=== PATIENT | female | born 1970 | race Caucasian/White ===

== ENCOUNTER 2018-05-04 11:21 | Emergency (ER) | payer MEDICAID, SELFPAY ==
[2018-05-04 11:22] VITALS: BP 125/88; PULSE 79; RESP 14; TEMP 36.4; O2SAT 96; BMI 24.9
[2018-05-04 11:32] VITALS: BP 113/78; PULSE 76; RESP 20; O2SAT 94
--- NOTE | 2018-05-04 11:44 | EKG12_ITS ---
Test Reason : CP Blood Pressure : / mmHG Vent. Rate : 077 BPM Atrial Rate : 077 BPM P-R Int : 148 ms QRS Dur : 072 ms QT Int : 384 ms P-R-T Axes : 046 004 035 degrees QTc Int : 434 ms Normal sinus rhythm Septal infarct , age undetermined Abnormal ECG Confirmed by PAULINE COLEY, JESSI ([id number]), senior technical editor BARBARA NGUYEN ([id number] on 05/11/2018 3:23:09 PM Referred By: JOHN Confirmed By:JESSI CARPENTER MD
--- NOTE | 2018-05-04 11:44 | RAD_ITS ---
STUDY: X-RAY CHEST REASON FOR EXAM: Female, 47 years old. Chest pain x1 month TECHNIQUE: PA and lateral views of the chest. COMPARISON: 11/07/2013 FINDINGS: The lungs are clear and expanded. There is no demonstrated pleural abnormality. Normal size heart. Normal mediastinum and reina. Normal visualized pulmonary arteries. Normal visualized aortic arch and descending thoracic aorta. Normal visualized thoracic spine. Normal visualized ribs, clavicles, and shoulders. There is no demonstrated abnormality of the visualized soft tissue structures of the upper abdomen. RAD/Chest PA and Lateral IMPRESSION: Normal x-ray examination of the chest. Electronically Signed: Eric Fall DO at 12:28 EDT Tel , Service support ,
[2018-05-04] MEDS: Aspirin 81 MG TAB.CHEW 324 MG PO (11:50)
[2018-05-04 11:51] LABS: Absolute Neutrophil Count 4.4 X10^3/uL (2.0-7.7); Basophil# 0.01 X10^3/uL; Basophil% 0.1 % (0-1); Hematocrit 44.9 % (37-47); Hemoglobin 14.7 g/dl (12.0-15.0); Lymphocyte % 36.1 % (19-41); Mean Corp Hgb Conc 32.7 g/gl (32-36); Mean Corpuscular Hgb 28.2 pg (27.0-32.0); Mean Corpuscular Volume 86.2 fL (81-99); Mean Platelet Vol. 10.9 fl (6.2-12.0); Monocyte# 0.39 X10^3/uL; Monocyte% 5.2 % (0-10); Neutrophil # 4.37 X10^3/uL (2.7-7.7); Neutrophil % 58.5 % (47-70); POSITIVE COUNT NO; POSITIVE DIFFERENTIAL NO; POSITIVE MORPHOLOGY NO; Platelet Count 346 K/mm3 (150-450); RBC Distribution Width CV 14.8 % (11.6-14.6); RBC Distribution Width SD 46.9 fl (35.1-43.9); Red Blood Count 5.21 M/mm3 (4.2-5.4); White Blood Count 7.5 K/mm3 (4.4-11.0)
[2018-05-04 12:04] LABS: Anion Gap 9 (5-15); BUN 12 mg/dL (7-18); Calcium,Total 9.4 mg/dL (8.5-10.1); Chloride 97 mmol/L (98-107); EST Glomerular Filtration Rate 51 mL/min (>60); Est Glom Filt Rate - Afr Amer 62 mL/min (>60); Estimated Creatinine Clearance 53.67 ml/min; Glucose 80 mg/dL (74-106); Potassium 3.8 mmol/L (3.5-5.1); Sodium Level 135 mmol/L (136-145)
[2018-05-04 13:20] LABS: D-Dimer Quantitative (DVT/PE) 1.75 FEU/ug/m (0.27-0.49)
--- NOTE | 2018-05-04 13:20 | CT_ITS ---
STUDY: CTA CHEST REASON FOR EXAM: Female, 47 years old. One-month history of a elevated d-dimer and chest pain. History of bronchitis. RADIATION DOSAGE (If Supplied By Facility): CTDIvol = ( 7.37 ) mGy, DLP = ( 275.26 ) mGycm TECHNIQUE: The examination was performed with the intravenous administration of 75 ml of Isovue 370 contrast material. Post-processing of the angiographic images was performed, with multiplanar reformation and 3D reconstruction. Individualized dose optimization techniques were used for this CT. COMPARISON: Comparison is made with prior study dated November 07, 2013. FINDINGS: Small bilateral axillary lymph nodes slightly more prominent on the left side. Normal enhancement of the main pulmonary artery and right and left pulmonary arteries. Normal enhancement of the bilateral peripheral pulmonary arteries. There is no demonstrated pulmonary embolism. Normal thoracic aorta and visualized great vessels. There is no demonstrated aortic dissection. Normal heart and pericardium. There are visualized mediastinal lymph nodes, which are within normal size limits, and with normal morphology. Normal hilar regions. Normal visualized trachea and bronchi. The lungs are well expanded. There is evidence of emphysematous changes. This is worse in the upper lobes. Normal pleura. Normal chest wall structures. There are degenerative changes of thoracic spine. Small hiatal hernia. CT/CTA Chest W/WO Contrast IMPRESSION: No acute abnormality is seen. Emphysematous changes. Electronically Signed: Ramsey Box MD at 15:10 EDT Tel [phone], Service support ,
[2018-05-04 14:41] VITALS: BP 125/86; PULSE 63; RESP 18; O2SAT 97
--- NOTE | 2018-05-04 15:23 | ED.DCSUM_ITS ---
- ER Visit Summary Date of Service: 05/04/18 Chief Complaint: Chest pain History of Present Illness: The patient is a 47 F who presents with chest pain. She states that this is been present for a month. She states I think it is my fibro. She complains of left upper chest pain through to her shoulder and down her arm. She has recently been treated for bronchitis with 3 different antibiotics in the last month. She complains of congestion rhinorrhea and cough although notes that this is improving. No fever nausea vomiting diarrhea. Physical Examination: Afebrile vitals are stable and within normal limits Moist mucous membranes Heart regular rate and rhythm Lungs are clear without rales rhonchi or wheezes Patient does have some left upper chest tenderness No rash Alert Extremities nontender without edema Test Results: EKG shows normal sinus rhythm at a rate of 77 with no acute ischemic changes. Chest x-ray is normal. Labs are unremarkable with a negative troponin. D-dimer is 1.75. CTA of the chest shows no evidence of pulmonary embolism or aortic dissection. Emergency Department Course and Treatment: Patient's workup is unremarkable as above. EMILEE risk score is 0 and heart score is 2 which places her in a low risk category. She has been having symptoms for 1 month. I do not believe this is due to cardiac ischemia. I do believe she is safe to follow-up with her primary care physician in the office. She understands to return for new or worsening symptoms and was discharged home. Treatment Plan: [] Disposition: Discharge Impression: Chest pain This note was generated with Pic[employer] dictation software. It may contain incorrect words, spelling, and punctuation that were not noted in review of the chart prior to signing ED Disposition - Plan for ED Patient: Chief Complaint: Chest Pain Referrals: Song Tee III, MD [Primary Care Provider] -
--- NOTE | 2018-05-04 15:25 | ED.DEP ---
ED Disposition - Plan for ED Patient: Chief Complaint: Chest Pain Instructions: ED Chest Pain NonCardiac Referrals: Song Tee III, MD [Primary Care Provider] -
[2018-05-04 15:35] VITALS: BP 127/84; PULSE 64; RESP 17; O2SAT 99
== END 2018-05-04 15:36 | disposition home or self-care (01) ==
LOC: ED 11:52
PROVIDERS: Emergency Provider Emergency Medicine; Family Provider Family Medicine; PCP Family Medicine
DX: R07.9 Chest pain, unspecified (principal); R05 Cough; J34.89 Other specified disorders of nose and nasal sinuses; I10 Essential (primary) hypertension; K21.9 Gastro-esophageal reflux disease without esophagitis; Z72.0 Tobacco use
CPT/HCPCS: 71046; 71275; 80048; 84484; 85025; 85379; 93005; 99285; Q9967; A4216

== ENCOUNTER 2022-07-03 13:04 | Emergency (ER) | payer MEDICAID, SELFPAY ==
[2022-07-03 13:05] VITALS: BP 158/77; PULSE 98; RESP 16; TEMP 36.6; O2SAT 100; BMI 23.3
[2022-07-03] MEDS: Lidocaine 1% (20 ml mdv) 20 ML Vial 10 ML INFILT (16:13)
[2022-07-03 16:18] VITALS: BP 123/82; PULSE 76; PULSE 80; RESP 15; O2SAT 98
--- NOTE | 2022-07-03 16:44 | EDS_ITS ---
HPI <TERRELL Clements - Last Filed: 07/03/22 21:59> History of Present Illness Chief Complaint: Abscess Narrative Narrative: Patient presents today with an abscess on her right inner thigh that started Friday. She states she had no injury to the area and that it just randomly appeared. She states a pus-like discharge was coming out of it Friday and that on Friday the discharge was clear. She states she has only had one abscess before in a different location and it was when she was a teenager. Patient denies fever, chills, abdominal pain, nausea, vomiting, diarrhea. PFSH <TERRELL Clements - Last Filed: 07/03/22 21:59> PFSH Medical History Hypertension Smoker Home Medications Bisoprol/Hydrochlorothiazide [Ziac 10/6.25 Mg (Beta Shira)] 1 tab PO DAILY 11/07/13 [History Last Taken 05/04/18] Venlafaxine Xr [Effexor Xr] 75 mg PO DAILY 11/07/13 [History Last Taken 05/04/18] ketorolac 10 mg tablet 10 mg PO Q6H ##20 11/08/13 [Rx Last Taken Unknown] gabapentin 600 mg tablet 900 mg PO TIDCM 05/04/18 [History Last Taken 05/04/18] doxycycline hyclate 100 mg capsule 100 mg PO DAILY cellulitis 5 days #5 caps 07/03/22 [Rx Last Taken Unknown] omeprazole 20 mg capsule,delayed release 20 mg PO DAILY 07/03/22 [History Last Taken Unknown] Allergy/AdvReac Type Severity Reaction Status Date / Time Sulfa (Sulfonamide Allergy Shortness Verified 07/03/22 13:05 Antibiotics) of breath amoxicillin [Amoxicillin] AdvReac Other Verified 07/03/22 13:05 Social History Smoking Status: Current every day smoker tobacco type: cigarettes ROS <TERRELL Clements - Last Filed: 07/03/22 21:59> ROS ED Constitutional Constitutional ED: Denies chills, fever(s) or sweats Eyes Eyes: Denies blurry vision or change in vision ENT ENT ED: Denies rhinorrhea or sore throat Cardiovascular Cardiovascular: Denies chest pain or palpitations Respiratory/Chest Respiratory/Chest: Denies cough, dyspnea, shortness of breath at rest or shortness of breath with exertion Gastrointestinal Gastrointestinal: Denies abdominal pain, diarrhea, nausea or vomiting Genitourinary Genitourinary ED: Denies dysuria, hematuria or urinary frequency Musculoskeletal Musculoskeletal: Denies myalgias Integumentary Reports abscess; Denies Abrasions or rash Neurologic Neurologic: Denies headache(s), paresthesias or weakness Psychiatric Psychiatric: Denies anxiety EXAM <TERRELL Clements - Last Filed: 07/03/22 21:59> Physical Exam Const Vital Signs: 07/03/22 13:05 07/03/22 16:18 07/03/22 16:18 Temperature 97.8 F Temperature Source Temporal Pulse Rate 98 80 76 Respiratory Rate 16 15 15 Blood Pressure 158/77 H 123/82 H 123/82 H Blood Pressure Mean 104 95 Pulse Ox 100 98 98 Oxygen Delivery Method Room Air Room Air Positive well nourished and well developed General Appearance ED: well developed HEENT Reports moist mucous membranes Negative for trauma or tenderness Eyes PERRL and EOMs intact bilaterally Neck supple Chest Wall inspection of chest normal Resp normal respiratory effort and clear to auscultation bilaterally Cardio regular rate, regular rhythm and no murmurs GI non-tender, non-distended and no masses Palpation: soft Back/Spine Cervical Spine: Negative for cervical spine tenderness Thoracic Spine / Upper Back: Negative for thoracic spinal tenderness Lumbar Spine / Lower Back: Negative for lumbar spinal tenderness Extremity Extremity Narrative: Patient has a small fluctuant and erythemic abscess on her right inner thigh near the groin. No streaking of redness. Neuro oriented x3, CN's II-XII intact bilaterally and no sensory deficits noted Sensorium / Orientation: alert Motor Exam: strength 5/5 throughout Psych mental status grossly normal Skin Skin Narrative: see extremity. Lesions: No lesion noted Rashes: No rashes noted <Dr. Constantino Duran MD - Last Filed: 07/03/22 22:05> Physical Exam Const Vital Signs: 07/03/22 13:05 07/03/22 16:18 07/03/22 16:18 Temperature 97.8 F Temperature Source Temporal Pulse Rate 98 80 76 Respiratory Rate 16 15 15 Blood Pressure 158/77 H 123/82 H 123/82 H Blood Pressure Mean 104 95 Pulse Ox 100 98 98 Oxygen Delivery Method Room Air Room Air MDM <TERRELL Clements - Last Filed: 07/03/22 21:59> [facility] MDM Narrative Medical decision making narrative: The abscess was drained and patient was sent home with antibiotics. She has been given return instructions such as increased redness, increased swelling, increased purulent discharge, and fever. I am comfortable with patient d ischarging home and patient is comfortable with plan. <Dr. Constantino Duran MD - Last Filed: 07/03/22 22:05> [facility] Treatment and Re-Evaluation Narrative: Renee- Patient was seen by me there is a right inner thigh abscess that is slightly draining, I did asked the PA to break all the loculations. This happened and I evaluated the wound, all the loculations are broken there is no further pus. We will place the patient on analgesics and antibiotics. Procedures <TERRELL Clements - Last Filed: 07/03/22 21:59> Other Procedures Procedure(s): Area was cleaned with Betadine and 6 cc of lidocaine was injected to the area. The abscess was opened with hemostats and drained. No packing was necessary. The area was then dressed with a dry sterile dressing. Discharge Plan Triage Chief Complaint: Abscess ED Midlevel Provider: Samaria Vega ED Provider: Constantino Duran Dx/Rx/DC Orders Clinical Impression: Abscess Instructions: Abscess Drainage Prescriptions: New doxycycline hyclate 100 mg capsule 100 mg PO DAILY 5 Days Qty: 5 0RF No Action Bisoprol/Hydrochlorothiazide [Ziac 10/6.25 Mg (Beta Shira)] 1 TAB tablet 1 tab PO DAILY Venlafaxine Xr [Effexor Xr] 75 MG capsule 75 mg PO DAILY ketorolac 10 MG tablet 10 mg PO Q6H Qty: 20 0RF gabapentin 600 tablet 900 mg PO TIDCM omeprazole 20 mg capsule,delayed release(DR/EC) 20 mg PO DAILY Label Comments: TAKE ONE CAPSULE BY MOUTH ONCE DAILY 30 MINUTES BEFORE BREAKFAST Primary Care Provider: Shawn Aguero Referrals: Shawn Aguero PA [Primary Care Provider] - 5-7 Days Activity Restrictions/Additional Instructions: Please return if you notice increased redness and swelling or if you develop a fever. Keep area clean, dry, and covered. Disposition Disposition: Home, Self Care Discharge Date/Time: 07/03/22 16:20
== END 2022-07-03 16:20 | disposition home or self-care (01) ==
PROVIDERS: Emergency Provider Emergency Medicine; PCP Physician Assistant; Visit Provider Emergency Medicine
DX: L02.415 Cutaneous abscess of right lower limb (principal); I10 Essential (primary) hypertension; F17.210 Nicotine dependence, cigarettes, uncomplicated
CPT/HCPCS: 10060; 99283

== ENCOUNTER 2022-07-09 13:27 | Observation (INO) | payer MEDICAID, SELFPAY ==
[2022-07-09 13:28] VITALS: BP 150/84; PULSE 80; RESP 14; TEMP 36.6; O2SAT 100; BMI 22.1
--- NOTE | 2022-07-09 14:25 | EX.ED.DYSGE1 ---
HPI <TERRELL Clements - Last Filed: 07/09/22 22:05> History of Present Illness Chief Complaint: Abscess Narrative Narrative: Patient presents today with a purulent and erythemic wound on her upper right inner thigh that started 06/29/22. Patient presented here on 07/03 for the same problem but less severe. At that point there was an abscess that was I&D and patient was placed on 5 days of doxycycline. Patient states that she did not take her Doxy as prescribed and only took 1 pill. She states she slept for almost 4 days straight and is mad that her daughter did not wake her up to take her antibiotic. Patient states that the wound now smells and hurts. She thinks she may have had a fever and chills a few days ago but is unsure. Patient denies recent fever, abdominal pain, nausea, and vomiting. PFSH <TERRELL Clements - Last Filed: 07/09/22 22:05> [facility] Medical History Hypertension Smoker Home Medications gabapentin 600 mg tablet 900 mg PO TIDCM 05/04/18 [History Last Taken 1 Week Ago ~07/02/22] omeprazole 20 mg capsule,delayed release 20 mg PO DAILY 07/03/22 [History Last Taken 1 Week Ago ~07/02/22] bisoprolol 10 mg-hydrochlorothiazide 6.25 mg tablet 1 tab PO DAILY HEART 07/09/22 [History Last Taken 1 Week Ago ~07/02/22] cetirizine 10 mg tablet 10 mg PO DAILY ALLERGIES 07/09/22 [History Last Taken 1 Week Ago ~07/02/22] tizanidine 4 mg tablet 4 mg PO DAILY MUSCLE RELAXANT 07/09/22 [History Last Taken 1 Week Ago ~07/02/22] venlafaxine 150 mg capsule,extended release 24 hr 150 mg PO DAILY DEPRESSION 07/09/22 [History Last Taken 1 Week Ago ~07/02/22] Allergy/AdvReac Type Severity Reaction Status Date / Time Sulfa (Sulfonamide Allergy Shortness Verified 07/09/22 13:28 Antibiotics) of breath amoxicillin [Amoxicillin] AdvReac Other Verified 07/09/22 13:28 Family History (Updated 07/09/22 @ 19:[address] Jossy Hebert MD) Mother Diabetes Father Mesothelioma Surgical History (Updated 07/09/22 @ 20:[address] Jossy Hebert MD) H/O foot surgery History of carpal tunnel surgery History of elbow surgery Social History (Updated 07/09/22 @ 19:[address] Jossy Hebert MD) household members: family Smoking Status: Light Smoker (<10/day) alcohol intake: former substance use type: does not use ROS <TERRELL Clements - Last Filed: 07/09/22 22:05> ROS ED Constitutional Constitutional ED: Denies chills, fever(s) or sweats Eyes Eyes: Denies blurry vision, change in vision or diplopia ENT ENT ED: Denies nasal congestion, rhinorrhea or sore throat Cardiovascular Cardiovascular: Denies chest pain, palpitations or racing heartbeat Respiratory/Chest Respiratory/Chest: Denies cough, dyspnea or dyspnea on exertion Gastrointestinal Gastrointestinal: Denies abdominal pain, diarrhea, nausea or vomiting Genitourinary Genitourinary ED: Denies dysuria, hematuria or urinary frequency Musculoskeletal Musculoskeletal: Denies back pain, myalgias or neck pain Integumentary Reports abscess; Denies Abrasions or rash Neurologic Neurologic: Denies headache(s), paresthesias or weakness Psychiatric Psychiatric: Denies anxiety or depression Hematologic/Lymphatic Hematologic/Lymphatic: Denies easy bleeding EXAM <TERRELL Clements - Last Filed: 07/09/22 22:05> Physical Exam Const Vital Signs: 07/09/22 13:28 07/09/22 17:08 Temperature 97.8 F Temperature Source Temporal Pulse Rate 80 63 Respiratory Rate 14 16 Blood Pressure 150/84 H 155/55 H Blood Pressure Mean 106 88 Pulse Ox 100 100 Oxygen Delivery Method Room Air Room Air Positive well nourished and well developed General Appearance ED: well developed and NAD HEENT Reports moist mucous membranes Negative for trauma Eyes PERRL and EOMs intact bilaterally Neck no lymphadenopathy and supple Chest Wall inspection of chest normal Resp normal respiratory effort and clear to auscultation bilaterally Cardio regular rate, regular rhythm and no murmurs GI non-tender, non-distended and no masses Palpation: soft Back/Spine Cervical Spine: Negative for cervical spine tenderness Thoracic Spine / Upper Back: Negative for thoracic spinal tenderness Lumbar Spine / Lower Back: Negative for lumbar spinal tenderness Extremity Extremity Narrative: Patient has a erythemic and purulent wound to her right upper inner thigh. There is hardness to the wound but no fluctuance is appreciated. There is some streaking of redness up her R thigh. Neuro oriented x3, CN's II-XII intact bilaterally and no sensory deficits noted Sensorium / Orientation: alert Motor Exam: strength 5/5 throughout Psych mental status grossly normal Skin skin turgor normal Skin Narrative: See above. Rashes: No rashes noted <Dr. Vicki Shah DO - Last Filed: 07/09/22 23:54> Physical Exam Const Vital Signs: 07/09/22 13:28 07/09/22 17:08 Temperature 97.8 F Temperature Source Temporal Pulse Rate 80 63 Respiratory Rate 14 16 Blood Pressure 150/84 H 155/55 H Blood Pressure Mean 106 88 Pulse Ox 100 100 Oxygen Delivery Method Room Air Room Air Extremity Extremity Narrative: Patient has a erythemic and purulent wound to her right upper inner thigh. There is hardness to the wound but no fluctuance is appreciated. There is some streaking of redness up her R thigh. 2 cm in diameter with surrounding erythema/induration of the skin MDM <TERRELL Clements - Last Filed: 07/09/22 22:05> MDM MDM Narrative Medical decision making narrative: Vancomycin has been administered. Wound culture has been obtained. There is no abscess to drain but patient has cellulitis. Patient has been given potassium replacement. Patient has been discussed with the hospitalist and I think she will benefit from admission for IV antibiotics. Patient is comfortable with plan. Patient will be admitted to the hospital for observation and further treatment. Lab Data Attestation: I reviewed the patient's lab results. Lab results narrative: No elevated white blood cell count. Hypokalemia. Decreased anion gap. Slightly elevated BUN and creatinine. Labs: Laboratory Results - last 24 hr 07/09/22 07/09/22 07/09/22 15:05 15:05 15:05 WBC 7.5 RBC 4.58 Hgb 11.8 L Hct 37.4 MCV 81.7 MCH 25.8 L MCHC 31.6 L RDW Std Deviation 42.5 RDW Coeff of Laurie 14.6 Plt Count 257 MPV 10.7 Immature Gran % (Auto) 0.900 Neut % (Auto) 67.4 Lymph % (Auto) 25.0 Norton % (Auto) 6.4 Eos % (Auto) 0.0 Baso % (Auto) 0.3 Absolute Neuts (auto) 5.1 Absolute Lymphs (auto) 1.88 Nucleated RBC % 0 Sodium 134 L Potassium 2.8 L Chloride 103 Carbon Dioxide 28.0 Anion Gap 3 L BUN 20 H Creatinine 1.06 H Estim Creat Clear Calc 58.12 Est GFR (MDRD) Af Amer 70 Est GFR (MDRD) Non-Af 58 L BUN/Creatinine Ratio 18.9 Glucose 87 Hemoglobin A1c Calcium 9.1 Magnesium 2.4 07/09/22 15:05 WBC RBC Hgb Hct MCV MCH MCHC RDW Std Deviation RDW Coeff of Laurie Plt Count MPV Immature Gran % (Auto) Neut % (Auto) Lymph % (Auto) Norton % (Auto) Eos % (Auto) Baso % (Auto) Absolute Neuts (auto) Absolute Lymphs (auto) Nucleated RBC % Sodium Potassium Chloride Carbon Dioxide Anion Gap BUN Creatinine Estim Creat Clear Calc Est GFR (MDRD) Af Amer Est GFR (MDRD) Non-Af BUN/Creatinine Ratio Glucose Hemoglobin A1c 5.8 H Calcium Magnesium Radiography Diagnostic Testing: Clinical Impression(s) from Imaging Studies Abdomen/Pelvis CT 07/09/22 15:35 IMPRESSION: Cellulitis of the upper right thigh but no abscess. Electronically Signed: Blayne Grace MD at 16:47 EST , I agree with radiologist impressions. This CT scan has also been reviewed by attending ED physician. <Dr. Vicki Shah, DO - Last Filed: 07/09/22 23:54> [facility] Lab Data Labs: Laboratory Results - last 24 hr 07/09/22 07/09/22 07/09/22 15:05 15:05 15:05 WBC 7.5 RBC 4.58 Hgb 11.8 L Hct 37.4 MCV 81.7 MCH 25.8 L MCHC 31.6 L RDW Std Deviation 42.5 RDW Coeff of Laurie 14.6 Plt Count 257 MPV 10.7 Immature Gran % (Auto) 0.900 Neut % (Auto) 67.4 Lymph % (Auto) 25.0 Norton % (Auto) 6.4 Eos % (Auto) 0.0 Baso % (Auto) 0.3 Absolute Neuts (auto) 5.1 Absolute Lymphs (auto) 1.88 Nucleated RBC % 0 Sodium 134 L Potassium 2.8 L Chloride 103 Carbon Dioxide 28.0 Anion Gap 3 L BUN 20 H Creatinine 1.06 H Estim Creat Clear Calc 58.12 Est GFR (MDRD) Af Amer 70 Est GFR (MDRD) Non-Af 58 L BUN/Creatinine Ratio 18.9 Glucose 87 Hemoglobin A1c Calcium 9.1 Magnesium 2.4 07/09/22 15:05 WBC RBC Hgb Hct MCV MCH MCHC RDW Std Deviation RDW Coeff of Laurie Plt Count MPV Immature Gran % (Auto) Neut % (Auto) Lymph % (Auto) Norton % (Auto) Eos % (Auto) Baso % (Auto) Absolute Neuts (auto) Absolute Lymphs (auto) Nucleated RBC % Sodium Potassium Chloride Carbon Dioxide Anion Gap BUN Creatinine Estim Creat Clear Calc Est GFR (MDRD) Af Amer Est GFR (MDRD) Non-Af BUN/Creatinine Ratio Glucose Hemoglobin A1c 5.8 H Calcium Magnesium Radiography Diagnostic Testing: Clinical Impression(s) from Imaging Studies Abdomen/Pelvis CT 07/09/22 15:35 IMPRESSION: Cellulitis of the upper right thigh but no abscess. Electronically Signed: Blayne Grace MD at 16:47 EST , Treatment and Re-Evaluation Narrative: I have personally performed a face to face assessment of the patient and have reviewed the ANNY Note. I performed a substantive portion of the visit including all aspects of the following. My mosley findings include: History is patient is evaluated for worsening wound/abscess to her right upper thigh. Patient was seen and evaluated in our ER1 week ago for an abscess in the same area. She was placed on doxycycline and I&D was performed. Patient admits that she only took 1 dose of the doxycycline and for the past 3 days has been sleeping and not eating. She previously had fever and chills. She states her daughter was supposed to wake her up to remind her to take her medications and her daughter is 19 and has 3 children at home so she has been overwhelmed. Patient overall is well-appearing. Her work-up is largely normal. She does have a mild elevation of her BUN and creatinine I suspect she is a little bit dehydrated. No leukocytosis. She is hypokalemic. Magnesium is ordered which is normal. She started on potassium replacement in the ER. The wound itself is draining slightly and ulcerated. I do not think there is further abscess amenable to I&D. There is surrounding cellulitic changes. No crepitus appreciated. CT the abdomen pelvis obtained to evaluate for any deeper abscess or free air. This is positive only for cellulitis of the upper right thigh. Given patient's allergies and worsening wound especially is close it is to the perineum I think she would benefit from IV antibiotics. She started on IV vancomycin. Patient agreeable to splenic care. She remains hemodynamically stable in the ER. Discharge Plan Dx/Rx/DC Orders Clinical Impression: Cellulitis, Acute hypokalemia Disposition Disposition: Acute Care Hospital [facility] Discharge Date/Time: 07/09/22 19:00
[2022-07-09 15:13] LABS: Absolute Lymphocyte Count 1.88 X10^3/uL (0.83-4.51); Absolute Neutrophil Count 5.1 X10^3/uL (2.0-7.7); Basophil# 0.02 X10^3/uL; Basophil% 0.3 % (0-1); Hematocrit 37.4 % (37-47); Hemoglobin 11.8 g/dL (12.0-15.0); Lymphocyte # 1.88 X10^3/ul (0.83-4.51); Mean Corp Hgb Conc 31.6 g/dL (32-36); Mean Corpuscular Hgb 25.8 pg (27.0-32.0); Mean Corpuscular Volume 81.7 fL (81-99); Mean Platelet Vol. 10.7 fl (6.2-12.0); Monocyte# 0.48 X10^3/uL; Monocyte% 6.4 % (0-10); NRBC Flagged by Analyzer 0 % (0-5); Neutrophil # 5.07 X10^3/uL (2.7-7.7); Neutrophil % 67.4 % (47-70); Platelet Count 257 K/mm3 (150-450); RBC Distribution Width CV 14.6 % (11.6-14.6); RBC Distribution Width SD 42.5 fl (35.1-43.9); Red Blood Count 4.58 M/mm3 (4.2-5.4); White Blood Count 7.5 K/mm3 (4.4-11.0)
[2022-07-09 15:27] LABS: Anion Gap 3 (5-15); BUN 20 mg/dL (7-18); BUN/Creat Ratio 18.9 RATIO (10-20); Calcium,Total 9.1 mg/dL (8.5-10.1); Chloride 103 mmol/L (98-107); Creatinine, Serum 1.06 mg/dL (0.55-1.02); EST Glomerular Filtration Rate 58 mL/min (>60); Est Glom Filt Rate - Afr Amer 70 mL/min (>60); Estimated Creatinine Clearance 58.12 ml/min; Glucose 87 mg/dL (74-106); Potassium 2.8 mmol/L (3.5-5.1); Sodium Level 134 mmol/L (136-145)
[2022-07-09] MEDS: Lidocaine 1% (20 ml mdv) 20 ML Vial 10 ML INFILT (15:31)
--- NOTE | 2022-07-09 15:35 | CT_ITS ---
STUDY: CT ABDOMEN AND PELVIS WITH CONTRAST REASON FOR EXAM: Female, 51 years old. abscess R inguinal region RADIATION DOSAGE (If Supplied By Facility): CTDIvol = ( 10.74 ) mGy, DLP = ( 519.94 ) mGycm TECHNIQUE: Transaxial images were obtained from the dome of the diaphragm to the symphysis pubis without oral contrast. IV 100mL Isovue-300 was administered. Sagittal and coronal images were reconstructed. Individualized dose optimization techniques were used for this CT. COMPARISON: None. FINDINGS: The visualized lung bases are unremarkable. The visualized portions of the heart are within normal limits. Normal liver. Normal gallbladder and extrahepatic biliary system. Normal spleen. Normal pancreas. Normal bilateral adrenal glands. Normal right kidney. Normal left kidney. Normal visualized stomach. Normal small intestine. Normal colon. The appendix is visualized and appears normal. There is diffuse atherosclerotic calcification of the abdominal aorta, without a demonstrated aneurysm. Normal inferior vena cava. Normal retroperitoneum. Normal urinary bladder. Normal abdominal wall. Mild levoscoliosis of the lumbar spine with degenerative disc disease. Skin thickening and edema of the subcutaneous fat of the medial aspect of the proximal thigh consistent with cellulitis but no loculated fluid collection to suggest abscess. CT/Abdomen/Pelvis W IV Cont ONLY IMPRESSION: Cellulitis of the upper right thigh but no abscess. Electronically Signed: Blayne Grace MD at 16:47 EST ,
[2022-07-09 16:08] LABS: Magnesium 2.4 mg/dL (1.6-2.6)
[2022-07-09] MEDS: Potassium Chloride Oral Soln 20 MEQ/15 ML UDC 40 MEQ PO (17:06)
[2022-07-09] MEDS: Potassium Chloride 10mEq/100mL 10 MEQ/100 ML IV.SOLN. 100 MEQ IV BOLUS ×2 (17:06→19:51)
[2022-07-09 17:08] VITALS: BP 155/55; PULSE 63; RESP 16; O2SAT 100
[2022-07-09] MEDS: 0.9% Normal Saline 1,000 ML 150 ML IV (17:48)
--- NOTE | 2022-07-09 17:52 | PCM.HP.STD ---
HPI - General General Date of Admission: 07/09/22 Date of Service: 07/09/22 Chief Complaint: Right thigh wound - 1 week HPI Narrative VERNON LUGO, is a 51 F who presents with the above. Patient has past medical history of hypertension, fibromyalgia, who was recently seen in the emergency room on 07/03/22 with an abscess of the right upper medial thigh. Patient had an I&D done at that time. She was discharged on doxycycline. Patient stated that when she go home, she took only 1 dose of the doxycycline. She stated that she slept for 3 days straight without her daughter waking her up. She denied taking anything. She cannot explain why she slept for 3 days without waking up. Patient came back because her wound hurts and is smelling. She denies any fever or chills. Her vitals in the ED showed blood pressure 150/84, heart rate 80, respiratory 14, temperature 97.8 F, oxygen sat 100% on room air. L BC count 7.5, hemoglobin 11.8, platelet count 257, sodium was 134 potassium 2.8, chloride 103, bicarbonate 28, BUN 20, creatinine 1.06. Magnesium was 2.4. CT of the abdomen/pelvis showed cellulitis of the upper right thigh but no abscess. [facility] Medical History Hypertension Smoker Home Medications gabapentin 600 mg tablet 900 mg PO TIDCM 05/04/18 [History Last Taken 1 Week Ago ~07/02/22] omeprazole 20 mg capsule,delayed release 20 mg PO DAILY 07/03/22 [History Last Taken 1 Week Ago ~07/02/22] bisoprolol 10 mg-hydrochlorothiazide 6.25 mg tablet 1 tab PO DAILY HEART 07/09/22 [History Last Taken 1 Week Ago ~07/02/22] cetirizine 10 mg tablet 10 mg PO DAILY ALLERGIES 07/09/22 [History Last Taken 1 Week Ago ~07/02/22] tizanidine 4 mg tablet 4 mg PO DAILY MUSCLE RELAXANT 07/09/22 [History Last Taken 1 Week Ago ~07/02/22] venlafaxine 150 mg capsule,extended release 24 hr 150 mg PO DAILY DEPRESSION 07/09/22 [History Last Taken 1 Week Ago ~07/02/22] Allergy/AdvReac Type Severity Reaction Status Date / Time Sulfa (Sulfonamide Allergy Shortness Verified 07/09/22 13:28 Antibiotics) of breath amoxicillin [Amoxicillin] AdvReac Other Verified 07/09/22 13:28 Family History (Updated 07/09/22 @ 19:[address] Jossy Hebert MD) Mother Diabetes Father Mesothelioma Surgical History (Updated 07/09/22 @ 20:[address] Jossy Hebert MD) H/O foot surgery History of carpal tunnel surgery History of elbow surgery Social History (Updated 07/09/22 @ 19:[address] Jossy Hebert MD) household members: family Smoking Status: Light Smoker (<10/day) alcohol intake: former substance use type: does not use ROS ROS Narrative Constitutional: Reports: Malaise, Weakness, Fatigue. Denies: Anorexia, Chills, Fever, Night Sweats, Weight Change Eyes: Denies: Blurred vision, Cataracts, Conjunctivae Inflammation, Pain, Redness, Vision Change HEENT: Denies: Difficulty Hearing, Difficulty Swallowing, Head Aches, Hearing Changes, Sinus Congestion, Sinus Drainage Cardiovascular: Denies: Chest Pain, Orthopnea, Palpitations Respiratory: Denies: Cough, Shortness of breath at rest, Sputum production Gastrointestinal: Denies: Abdominal Pain, Nausea, Vomiting Genitourinary: Denies: Dysuria Musculoskeletal: See HPI Skin: Denies: Rash, Wounds Neurological: Denies: Numbness, Tingling, Focal weakness Vital Signs Vital Signs Vital Signs: 07/09/22 13:28 07/09/22 17:08 Temperature 97.8 F Temperature Source Temporal Pulse Rate 80 63 Respiratory Rate 14 16 Blood Pressure 150/84 H 155/55 H Blood Pressure Mean 106 88 Pulse Ox 100 100 Oxygen Delivery Method Room Air Room Air Weight Weight: 62.142 kg Body Mass Index (BMI) 22.1 Physical Exam Narrative Physical exam: General: Alert, Oriented x3, Cooperative, HEENT: Atraumatic Oral: Moist Mucosa Neck: Supple Lungs: Clear to auscultation Cardiovascular: HS I+II, regular, no murmurs Abdomen: Bowel Sounds Present, Soft, Non Tender Extremities: No edema Skin: Right upper thigh erythema with differential warmth, ulcer on the right medial aspect of the upper thigh, measuring about 5 cm x 5 cm with evidence of slough, serosanguineous discharge Neurological: Grossly intact Psych/Mental Status: Appropriate Results Lab / Micro Data Result Diagrams: 07/09/22 15:05 07/09/22 15:05 Labs: Laboratory Results - last 24 hr 07/09/22 15:05: WBC 7.5, RBC 4.58, Hgb 11.8 L, Hct 37.4, MCV 81.7, MCH 25.8 L, MCHC 31.6 L, RDW Std Deviation 42.5, RDW Coeff of Laurie 14.6, Plt Count 257, MPV 10.7, Immature Gran % (Auto) 0.900, Neut % (Auto) 67.4, Lymph % (Auto) 25.0, [place] % (Auto) 6.4, Eos % (Auto) 0.0, Baso % (Auto) 0.3, Absolute Neuts (auto) 5.1, Absolute Lymphs (auto) 1.88, Nucleated RBC % 0 07/09/22 15:05: Sodium 134 L, Potassium 2.8 L, Chloride 103, Carbon Dioxide 28.0, Anion Gap 3 L, BUN 20 H, Creatinine 1.06 H, Estim Creat Clear Calc 58.12, Est GFR (MDRD) Af Amer 70, Est GFR (MDRD) Non-Af 58 L, BUN/Creatinine Ratio 18.9, Glucose 87, Calcium 9.1 07/09/22 15:05: Magnesium 2.4 Radiology Impression Abdomen/Pelvis CT 07/09/22 15:35 IMPRESSION: Cellulitis of the upper right thigh but no abscess. Electronically Signed: Blayne Grace MD at 16:47 EST , Assessment & Plan Assessment/Plan (1) Abscess: (2) Cellulitis: PLAN: Plan 1. Acute cellulitis/right upper thigh infected wound Status post I&D on 07/03/22; patient did not take care prescribed doxycycline Necrotizing fasciitis ruled out with negative CT of the abdomen and pelvis Admit to [facility], continue IV fluids, IV vancomycin and Zosyn Follow-up on wound cultures taken in the ED Wound RN consult as well as ID consult 2. Severe hypokalemia, potassium 2.8, replaced, Recheck later and in a.m. 3. Hypertension, controlled, continue bisoprolol/hydrochlorothiazide 4. History of fibromyalgia/depression/allergies/GERD Home med list reviewed -continue 5. Nicotine dependence, advised to quit, continue replacement 6. DVT prophylaxis?low risk, early ambulation recommended Charges/Coding Visit Charges Inpatient E&M: 28381 Init Hosp L3
[2022-07-09 17:59] VITALS: BP 166/78; PULSE 71; RESP 16; TEMP 36.6; O2SAT 99
[2022-07-09 18:06] VITALS: BP 168/77; PULSE 71; RESP 16; TEMP 36.6; O2SAT 98
[2022-07-09] MEDS: Vancomycin IV 1,000 MG/200 ML BAG 200 MG IV (18:17)
[2022-07-09 19:15] VITALS: BP 153/78; PULSE 73; RESP 16; TEMP 36.5; O2SAT 100
[2022-07-09 19:19] VITALS: BMI 22.2
[2022-07-09 20:36] LABS: Hemoglobin A1c 5.8 % (3.8-5.6)
[2022-07-09 21:20] LABS: Anion Gap 3 (5-15); BUN 17 mg/dL (7-18); BUN/Creat Ratio 16.5 RATIO (10-20); Calcium,Total 8.8 mg/dL (8.5-10.1); Chloride 106 mmol/L (98-107); Creatinine, Serum 1.03 mg/dL (0.55-1.02); EST Glomerular Filtration Rate 60 mL/min (>60); Est Glom Filt Rate - Afr Amer 72 mL/min (>60); Estimated Creatinine Clearance 59.81 ml/min; Glucose 123 mg/dL (74-106); Potassium 3.5 mmol/L (3.5-5.1); Sodium Level 137 mmol/L (136-145)
[2022-07-09 22:48] VITALS: BP 153/78; PULSE 73; RESP 16; TEMP 36.5; O2SAT 100
[2022-07-10 01:30] VITALS: BP 121/69; PULSE 71; RESP 16; TEMP 36.4; O2SAT 97
[2022-07-10 03:54] VITALS: BP 121/69; PULSE 71; RESP 16; TEMP 36.4; O2SAT 97
[2022-07-10] MEDS: 0.9% Normal Saline 1,000 ML 150 ML IV (05:47)
[2022-07-10 06:32] LABS: Absolute Neutrophil Count 4.6 X10^3/uL (2.0-7.7); Basophil# 0.02 X10^3/uL; Basophil% 0.3 % (0-1); Hemoglobin 11.2 g/dL (12.0-15.0); Lymphocyte % 27.9 % (19-41); Mean Corpuscular Hgb 25.9 pg (27.0-32.0); Mean Platelet Vol. 11.1 fl (6.2-12.0); Monocyte# 0.51 X10^3/uL; Monocyte% 7.1 % (0-10); NRBC Flagged by Analyzer 0 % (0-5); Platelet Count 275 K/mm3 (150-450); RBC Distribution Width CV 14.6 % (11.6-14.6); Red Blood Count 4.32 M/mm3 (4.2-5.4); White Blood Count 7.2 K/mm3 (4.4-11.0)
--- NOTE | 2022-07-10 06:34 | PHA.PHARE_ITS ---
Consult Pharmacy has been consulted to manage selected antiobiotic: Vancomycin Type of Consult: New start Suspected Infection: Skin/Soft tissue Prior Doses of Antibiotics Received/Current Regimen: received 1000mg IV x1 in E.R. last night starting at 18:17 Weight used for dosin.4 kg Estimated Creatinine Clearance: 58ml/min Goal Trough: 15-20 mcg/mL Pharmacy Plan for Drug Dosing: Starting 12 hours after last night's dose, continue with vanc 500mg IV q12h per [facility] dosing protocol. Will check a trough before the 4th total dose tomorrow morning. Pharmacy Service will continue to monitor and adjust dosing as required. Follow-Up Labs: Trough Vancomycin Labs to be done on [date and time ordered]: 07/11/22 0645
[2022-07-10 07:05] LABS: ALB/GLOB Ratio 0.8 RATIO (0.9-2.4); AST(SGOT) 14 U/L (15-37); Alanine Aminotransfer ALT/SGPT 19 U/L (13-56); Albumin, Serum 3.2 g/dL (3.2-5.0); Alkaline Phosphatase 74 U/L (45-117); Anion Gap 6 (5-15); BUN 14 mg/dL (7-18); BUN/Creat Ratio 12.8 RATIO (10-20); Calcium,Total 8.9 mg/dL (8.5-10.1); Chloride 107 mmol/L (98-107); Creatinine, Serum 1.09 mg/dL (0.55-1.02); EST Glomerular Filtration Rate 56 mL/min (>60); Est Glom Filt Rate - Afr Amer 68 mL/min (>60); Estimated Creatinine Clearance 56.52 ml/min; Glucose 102 mg/dL (74-106); Potassium 3.6 mmol/L (3.5-5.1); Protein, Total 7.2 g/dL (6.4-8.2); Sodium Level 136 mmol/L (136-145)
--- NOTE | 2022-07-10 07:10 | PN.HOSP_ITS ---
Subjective Subjective Had a wound on her leg and then slept for 3 to 6 days. State that her daughter had to wake her up but did not. Did not take her antibiotics with exception of just 1 tablet and the infection got worse. States that she has to get home to care for her grandson who has autism and that several of her children do not know where she is. Objective Data Objective Data Vital Signs: Vital Signs Temp Pulse Resp BP Pulse Ox O2 Del Method 36.4 C L 71 16 121/69 H 97 Room Air 07/10/22 03:54 07/10/22 03:54 07/10/22 03:54 07/10/22 03:54 07/10/22 03:54 07/10/22 03:54 Oxygen Delivery Method Room Air Weight: 62.4 kg Body Mass Index (BMI) 22.2 Intake & Output: Intake and Output for Last 24 Hours 07/08/22 07/09/22 07/10/22 23:59 23:59 23:59 Intake Total 400 / 400 1050 / 1050 Balance 400 / 400 1050 / 1050 Lab / Micro Data Result Diagrams: 07/10/22 06:13 07/10/22 06:13 Labs: Laboratory Results - last 24 hr 07/09/22 15:05: WBC 7.5, RBC 4.58, Hgb 11.8 L, Hct 37.4, MCV 81.7, MCH 25.8 L, MCHC 31.6 L, RDW Std Deviation 42.5, RDW Coeff of Laurie 14.6, Plt Count 257, MPV 10.7, Immature Gran % (Auto) 0.900, Neut % (Auto) 67.4, Lymph % (Auto) 25.0, [place] % (Auto) 6.4, Eos % (Auto) 0.0, Baso % (Auto) 0.3, Absolute Neuts (auto) 5.1, Absolute Lymphs (auto) 1.88, Nucleated RBC % 0 07/09/22 15:05: Sodium 134 L, Potassium 2.8 L, Chloride 103, Carbon Dioxide 28.0, Anion Gap 3 L, BUN 20 H, Creatinine 1.06 H, Estim Creat Clear Calc 58.12, Est GFR (MDRD) Af Amer 70, Est GFR (MDRD) Non-Af 58 L, BUN/Creatinine Ratio 18.9, Glucose 87, Calcium 9.1 07/09/22 15:05: Magnesium 2.4 07/09/22 15:05: Hemoglobin A1c 5.8 H 07/09/22 20:35: Sodium 137, Potassium 3.5, Chloride 106, Carbon Dioxide 28.0, Anion Gap 3 L, BUN 17, Creatinine 1.03 H, Estim Creat Clear Calc 59.81, Est GFR (MDRD) Af Amer 72, Est GFR (MDRD) Non-Af 60, BUN/Creatinine Ratio 16.5, Glucose 123 H, Calcium 8.8 07/10/22 06:13: WBC 7.2, RBC 4.32, Hgb 11.2 L, Hct 35.0 L, MCV 81.0, MCH 25.9 L, MCHC 32.0, RDW Std Deviation 43.0, RDW Coeff of Laurie 14.6, Plt Count 275, MPV 11.1, Immature Gran % (Auto) 0.700, Neut % (Auto) 64.0, Lymph % (Auto) 27.9, [place] % (Auto) 7.1, Eos % (Auto) 0.0, Baso % (Auto) 0.3, Absolute Neuts (auto) 4.6, Absolute Lymphs (auto) 2.00, Nucleated RBC % 0 07/10/22 06:13: Sodium 136, Potassium 3.6, Chloride 107, Carbon Dioxide 23.0, Anion Gap 6, BUN 14, Creatinine 1.09 H, Estim Creat Clear Calc 56.52, Est GFR (MDRD) Af Amer 68, Est GFR (MDRD) Non-Af 56 L, BUN/Creatinine Ratio 12.8, Glucose 102, Calcium 8.9, Total Bilirubin 0.50, AST 14 L, ALT 19, Alkaline Phosphatase 74, Total Protein 7.2, Albumin 3.2, Globulin 4.0, Albumin/Globulin Ratio 0.8 L Radiography Diagnostic Testing: Radiology Impression Abdomen/Pelvis CT 07/09/22 15:35 IMPRESSION: Cellulitis of the upper right thigh but no abscess. Electronically Signed: Blayne Grace MD at 16:47 EST , Physical Exam Const alert and no apparent distress Extremity Extremity Narrative: Large wound in medial right thigh with granulation tissue and foul odor. Induration superior without any fluctuance. Assessment & Plan Assessment/Plan (1) Abscess: PLAN: Status post I&D in the emergency room (2) Cellulitis: PLAN: Acute cellulitis/right upper thigh infected wound Status post I&D on 07/03/22; patient did not take care prescribed doxycycline Necrotizing fasciitis ruled out with negative CT of the abdomen and pelvis Admit to [facility], continue IV fluids, IV vancomycin and Zosyn Follow-up on wound cultures taken in the ED Wound RN consult as well as ID consult (3) Acute hypokalemia: PLAN: Severe hypokalemia, potassium 2.8, replaced, Recheck later and in a.m. PLAN: Plan Chronic conditions: * Hypertension, controlled, continue bisoprolol/hydrochlorothiazide * History of fibromyalgia/depression/allergies/GERD Home med list reviewed - continue * Nicotine dependence, advised to quit, continue replacement DVT prophylaxis?low risk, early ambulation recommended With the nurses present, advised the patient to stay. Patient stated that she has to leave and 10 to her grandson who has autism as well as several of her family numbers do not know where she is. I explained to her that she could be at risk of worsening infection and possible worse case, though unlikely, situations would be her requiring amputation of her leg or even . Patient insist on leaving AGAINST MEDICAL ADVICE despite that. This is done with the wound nurse as well as the patient's bedside nurse present in the room. Wound culture that she had performed on the sixes so far growing out a gram-negative leslie as well as a Staphylococcus species. Patient had been on doxycycline but only took 1 tablet. I do not feel that there is antibiotic failure but rather due to noncompliance. Whether or not her taking doxycycline would have prevented this from getting worse is unclear at this time. Greater than 35 minutes of which greater than for percent of time was counseling the patient about her abscess and the need to stay in the hospital.
--- NOTE | 2022-07-10 07:46 | NURSING ---
Vancomycin is due this morning. Dr. Chase cortexted and aware that zosyn is infusing and is the extended zosyn. Dr. Chase does not want zosyn to run fast.
[2022-07-10] MEDS: Vancomycin IV 500 MG/100 ML BAG 100 MG IV (07:55)
[2022-07-10] MEDS: Pantoprazole Sodium 20 MG Tablet PO (09:28)
[2022-07-10] MEDS: Bisoprolol Fumarate 5 MG Tablet 10 MG PO (09:28)
[2022-07-10] MEDS: tiZANidine HCl 2 MG Tablet 4 MG PO (09:28)
[2022-07-10] MEDS: hydroCHLOROthiazide 6.25mg TAB 6.25 MG PO (09:29)
[2022-07-10] MEDS: Loratadine 10 MG Tablet PO (09:29)
[2022-07-10] MEDS: Venlafaxine XR 150 MG Capsule PO (09:29)
[2022-07-10 09:37] VITALS: BP 132/57; PULSE 83; RESP 16; TEMP 36.6; O2SAT 98
[2022-07-10] MEDS: Gabapentin 300 MG Capsule 900 MG PO (09:41)
[2022-07-10] MEDS: Ensure Plus High Protein 120 ML LIQUID PO (09:43)
[2022-07-10] MEDS: 0.9% Saline Lock 10 ML Syringe IV (09:46)
[2022-07-10 10:00] VITALS: BP 132/57; PULSE 83; RESP 16; TEMP 36.6; O2SAT 98
--- NOTE | 2022-07-10 10:31 | WOUNDNOTE ---
wound photo: right upper medial thigh
--- NOTE | 2022-07-10 10:50 | CASEMGMT ---
RN CIPRIANO Face to Face with patient for initial transition planning/care coordination assessment. RN CM introduced self and role at [facility]. Patient sitting on edge of bed, alert and oriented. Patient willing to participate in assessment and is able to answer all questions appropriately. Care providers, pharmacy, and demographics verified. Patient wishes to discharge home, denies need for home health at this time. Patient states she has no further needs or concerns at this time. CM to follow for discharge planning needs that may arise. PCP: Laci Specialists: none Preferred Pharmacy: [facility] Insurance: Niko Niko Prescription Benefit: yes Living Will/HPOA: none LNOK: daughter, significant other Living Arrangements: Patient lives with daughter and her fiance in a mobile home. Patient states she is indepnedent at home. Transportation: self, daughter's fiance DME/HHC: Patient denies DME or needs at this time. Disposition Plan: Patient to discharge home with follow-up plans in place. Moriah NARAYANAN, RN, CM
--- NOTE | 2022-07-10 11:13 | NURSING ---
This RN was in the room with Dr. Chase while he was talking to the pt about staying in the hospital VS leaving. Pt became agitated and raised her voice at Dr. Chase. Despite Education from Dr. Chase and this NUrse for the importance of staying here for IV Antibiotics. Pt is more concerned about her Autistic Grandson and caring for him. Radhika Wound Nurse in room and performed wound care. Radhika Bethea RN Also educated pt to wash wound at home and changed drsg. Sending home with some drsg supplies.
--- NOTE | 2022-07-10 12:09 | PCM.DC.SUM ---
Providers Date of Admission: 07/09/22 Primary Care Physician: TERRELL Grover Consultations 07/09/22 19:50 Consult: Infectious Disease Routine Consulting Provider: Herbert Perla Reason for Consult: Right thigh wound/cellulitis EMERGENT Consult: No MD Notified: Yes Date Notified: 07/10/22 Time Notified: 08:23 Method of Notification: Answering Service Consult: Onc/Wound/registrar museum Routine Comment: Reason For Visit: CELLULITIS Diagnosis Discharge Diagnosis (1) Abscess: Status: Acute Code(s): L02.91 - Cutaneous abscess, unspecified Plan: Status post I&D in the emergency room (2) Cellulitis: Status: Acute Code(s): L03.90 - Cellulitis, unspecified Plan: Acute cellulitis/right upper thigh infected wound Status post I&D on 07/03/22; patient did not take care prescribed doxycycline Necrotizing fasciitis ruled out with negative CT of the abdomen and pelvis [facility], continue IV fluids, IV vancomycin and Zosyn Follow-up on wound cultures taken in the ED Wound RN consult as well as ID consult (3) Acute hypokalemia: Status: Acute Code(s): E87.6 - Hypokalemia Plan: Severe hypokalemia, potassium 2.8, replaced, Recheck later and in a.m. Plan Chronic conditions: Hypertension, controlled, continue bisoprolol/hydrochlorothiazide History of fibromyalgia/depression/allergies/GERD Home med list reviewed -continue Nicotine dependence, advised to quit, continue replacement DVT prophylaxis?low risk, early ambulation recommended With the nurses present, advised the patient to stay. Patient stated that she has to leave and 10 to her grandson who has autism as well as several of her family numbers do not know where she is. I explained to her that she could be at risk of worsening infection and possible worse case, though unlikely, situations would be her requiring amputation of her leg or even . Patient insist on leaving AGAINST MEDICAL ADVICE despite that. This is done with the wound nurse as well as the patient's bedside nurse present in the room. Wound culture that she had performed on the sixes so far growing out a gram-negative leslie as well as a Staphylococcus species. Patient had been on doxycycline but only took 1 tablet. I do not feel that there is antibiotic failure but rather due to noncompliance. Whether or not her taking doxycycline would have prevented this from getting worse is unclear at this time. Greater than 35 minutes of which greater than for percent of time was counseling the patient about her abscess and the need to stay in the hospital. Medications at Discharge Home Medications gabapentin 600 mg tablet 900 mg PO TIDCM 05/04/18 omeprazole 20 mg capsule,delayed release 20 mg PO DAILY 07/03/22 bisoprolol 10 mg-hydrochlorothiazide 6.25 mg tablet 1 tab PO DAILY HEART 07/09/22 cetirizine 10 mg tablet 10 mg PO DAILY ALLERGIES 07/09/22 tizanidine 4 mg tablet 4 mg PO DAILY MUSCLE RELAXANT 07/09/22 venlafaxine 150 mg capsule,extended release 24 hr 150 mg PO DAILY DEPRESSION 07/09/22 ciprofloxacin HCl 500 mg tablet 500 mg PO Q12H #14 tabs 07/10/22 doxycycline hyclate 100 mg capsule 100 mg PO BID #14 caps 07/10/22 Hospital Course Operations None Procedures None Summary of Care Provided Minutes Spent on Discharge: 35 Weight / BMI Weight Weight: 62.4 kg Body Mass Index (BMI) 22.2 ABG / Lab / Microbiology Data Result Diagrams: 07/10/22 06:13 07/10/22 06:13 Laboratory: Laboratory Results - last 24 hr 07/09/22 15:05: WBC 7.5, RBC 4.58, Hgb 11.8 L, Hct 37.4, MCV 81.7, MCH 25.8 L, MCHC 31.6 L, RDW Std Deviation 42.5, RDW Coeff of Laurie 14.6, Plt Count 257, MPV 10.7, Immature Gran % (Auto) 0.900, Neut % (Auto) 67.4, Lymph % (Auto) 25.0, [place] % (Auto) 6.4, Eos % (Auto) 0.0, Baso % (Auto) 0.3, Absolute Neuts (auto) 5.1, Absolute Lymphs (auto) 1.88, Nucleated RBC % 0 07/09/22 15:05: Sodium 134 L, Potassium 2.8 L, Chloride 103, Carbon Dioxide 28.0, Anion Gap 3 L, BUN 20 H, Creatinine 1.06 H, Estim Creat Clear Calc 58.12, Est GFR (MDRD) Af Amer 70, Est GFR (MDRD) Non-Af 58 L, BUN/Creatinine Ratio 18.9, Glucose 87, Calcium 9.1 07/09/22 15:05: Magnesium 2.4 07/09/22 15:05: Hemoglobin A1c 5.8 H 07/09/22 20:35: Sodium 137, Potassium 3.5, Chloride 106, Carbon Dioxide 28.0, Anion Gap 3 L, BUN 17, Creatinine 1.03 H, Estim Creat Clear Calc 59.81, Est GFR (MDRD) Af Amer 72, Est GFR (MDRD) Non-Af 60, BUN/Creatinine Ratio 16.5, Glucose 123 H, Calcium 8.8 07/10/22 06:13: WBC 7.2, RBC 4.32, Hgb 11.2 L, Hct 35.0 L, MCV 81.0, MCH 25.9 L, MCHC 32.0, RDW Std Deviation 43.0, RDW Coeff of Laurie 14.6, Plt Count 275, MPV 11.1, Immature Gran % (Auto) 0.700, Neut % (Auto) 64.0, Lymph % (Auto) 27.9, [place] % (Auto) 7.1, Eos % (Auto) 0.0, Baso % (Auto) 0.3, Absolute Neuts (auto) 4.6, Absolute Lymphs (auto) 2.00, Nucleated RBC % 0 07/10/22 06:13: Sodium 136, Potassium 3.6, Chloride 107, Carbon Dioxide 23.0, Anion Gap 6, BUN 14, Creatinine 1.09 H, Estim Creat Clear Calc 56.52, Est GFR (MDRD) Af Amer 68, Est GFR (MDRD) Non-Af 56 L, BUN/Creatinine Ratio 12.8, Glucose 102, Calcium 8.9, Total Bilirubin 0.50, AST 14 L, ALT 19, Alkaline Phosphatase 74, Total Protein 7.2, Albumin 3.2, Globulin 4.0, Albumin/Globulin Ratio 0.8 L Microbiology: Microbiology 07/09/22 18:15 Wound Abcess - Leg, Right Gram Stain - Final 07/09/22 18:15 Wound Abcess - Leg, Right Wound Culture - Preliminary GNR lactose academic administrator Staphylococcus species Radiography Diagnostic Testing: Radiology Impression Abdomen/Pelvis CT 07/09/22 15:35 IMPRESSION: Cellulitis of the upper right thigh but no abscess. Electronically Signed: Blayne Grace MD at 16:47 EST , Meaningful Use Info Meaningful Use Diagnoses (Choose all that apply): None applicable Discharge Plan Admission Admit Date/Time: 07/09/22 17:49 Attending Provider: Aric Chase Primary Care Provider: Shawn Aguero Consulting Providers: Jossy Hebert ; Herbert Perla Discharge Orders/Prescriptions Prescriptions: New doxycycline hyclate 100 mg capsule 100 mg PO BID Qty: 14 0RF ciprofloxacin HCl 500 mg tablet 500 mg PO Q12H Qty: 14 0RF Continued gabapentin 600 tablet 900 mg PO TIDCM omeprazole 20 mg capsule,delayed release(DR/EC) 20 mg PO DAILY Label Comments: TAKE ONE CAPSULE BY MOUTH ONCE DAILY 30 MINUTES BEFORE BREAKFAST cetirizine 10 mg tablet 10 mg PO DAILY Label Comments: TAKE 1 TABLET BY MOUTH ONCE DAILY NEEDED FOR HIVES bisoprolol-hydrochlorothiazide 10-6.25 mg tablet 1 tab PO DAILY Label Comments: Take 1 tablet by mouth once daily. tizanidine 4 mg tablet 4 mg PO DAILY Label Comments: TAKE 1 TABLET BY MOUTH EVERY 6 HOURS NEEDED FOR MUSCLE SPASMS venlafaxine 150 mg capsule,extended release 24hr 150 mg PO DAILY Label Comments: Take 1 capsule by mouth once daily. Referrals / Follow Up: Shawn Aguero PA [Primary Care Provider] - Disposition Disposition (needs filled in before D/C Order can be placed): Against Medical Advice Charges/Coding Visit Charges Inpatient E&M: 17189 Disch Hosp
== END 2022-07-10 11:47 | disposition left against medical advice (07) | DRG 383 ==
LOC: ED 14:17 → MS3 18:59
PROVIDERS: Physician Assistant; Admitting Provider Internal Medicine; Emergency Provider Emergency Medicine; PCP Physician Assistant
DX: L03.115 Cellulitis of right lower limb (principal); E87.6 Hypokalemia; I10 Essential (primary) hypertension; F17.200 Nicotine dependence, unspecified, uncomplicated; M79.7 Fibromyalgia; Z79.899 Other long term (current) drug therapy; F32.A Depression, unspecified; K21.9 Gastro-esophageal reflux disease without esophagitis; L02.415 Cutaneous abscess of right lower limb
CPT/HCPCS: 36415; 74177; 80048; 80053; 83036; 83735; 85025; 87070; 87077; 87186; 87205; 96365; 96366; 96367; 99221; 99284; J7030; Q9967; A4216; G0378

== ENCOUNTER 2024-03-03 03:52 | Inpatient (IN) | payer MEDICAID, SELFPAY ==
[2024-03-03] VITALS (7 sets, daily range): BP systolic 123–179; BP diastolic 70–100; PULSE 63–80; RESP 16–18; TEMP 36.4–36.9; O2SAT 97–98; BMI 21.4; BMI 22.4
--- NOTE | 2024-03-03 03:55 | CT_ITS ---
INDICATION: confusion EXAMINATION: CT BRAIN - CT Head or Brain W/O Contrast Injection TECHNIQUE: Multiple axial images were obtained of the head without intravenous contrast. A radiation dose optimization technique was used for this scan. IV Contrast dosage and agent: None. COMPARISON: None FINDINGS: BRAIN PARENCHYMA: No intra- or extra-axial hemorrhage. No evidence of acute infarct. 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 No intracranial mass or mass effect. Mild periventricular and subcortical white matter hypodense chronic small vessel white matter ischemic change. There is preservation of the pathak/white matter interface CSF SPACES: Cerebral volume appropriate for age. No hydrocephalus. Basal cisterns are patent. CALVARIUM, SKULL BASE, PARANASAL SINUSES AND MASTOID AIR CELLS: No acute osseous finding. Hyperdense diffuse opacification of imaged portion of the left mastoid air cells with chronic wall thickening. Mild right maxillary sinus disease. Underlying maxillary sinus surgical changes partially seen. Mastoid air cells are clear. Metallic right ear piercings.. ORBITS: Both globes, extraocular muscles, optic nerves and retrobulbar fat appear unremarkable. ASPECTS Score for Acute Strokes: 10 CT/Brain/Head without Contrast IMPRESSION: No CT evidence of acute intracranial hemorrhage or injury. 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 Chronic sinus disease with hyperdensity compatible with inspissated mucus or chronic allergic fungal disease. Electronically Signed: Tato Serra MD at 5:03 EDT ,
[2024-03-03 04:14] LABS: Absolute Lymphocyte Count 1.47 X10^3/uL (0.83-4.51); Absolute Neutrophil Count 7.6 X10^3/uL (2.0-7.7); Basophil# 0.02 X10^3/uL; Basophil% 0.2 % (0-1); Hematocrit 42.5 % (37-47); Hemoglobin 14.7 g/dL (12.0-15.0); Lymphocyte # 1.47 X10^3/ul (0.83-4.51); Lymphocyte % 15.1 % (19-41); Mean Corp Hgb Conc 34.6 g/dL (32-36); Mean Corpuscular Hgb 31.9 pg (27.0-32.0); Mean Corpuscular Volume 92.2 fL (81-99); Mean Platelet Vol. 10.5 fl (6.2-12.0); Monocyte# 0.56 X10^3/uL; Monocyte% 5.8 % (0-10); NRBC Flagged by Analyzer 0 % (0-5); Neutrophil # 7.62 X10^3/uL (2.7-7.7); Neutrophil % 78.5 % (47-70); Platelet Count 136 K/mm3 (150-450); RBC Distribution Width CV 12.9 % (11.6-14.6); RBC Distribution Width SD 43.3 fl (35.1-43.9); Red Blood Count 4.61 M/mm3 (4.2-5.4); White Blood Count 9.7 K/mm3 (4.4-11.0)
--- NOTE | 2024-03-03 04:14 | EX.ED.DYSGE1 ---
HPI History of Present Illness Chief Complaint: Alt LOC Informant: patient and EMS Narrative Narrative: Patient is a 53-year-old female with past medical history of fibromyalgia and hypertension. EMS states that they were called to because returned home from work and found the patient to be altered. EMS states that told them that she was not acting appropriately and he found her playing in her feces. also reports EMS that he believes she has not been taking her medications. Therefore because of the altered mental status she was brought in for evaluation. Based on the patient's altered mental status she cannot offer any further history PFSH PFS Medical History Fibromyalgia Hypertension Smoker Home Medications ?Medication ?Instructions ?Recorded ?Last Taken ?Type gabapentin 600 mg tablet 900 mg PO TIDCM 05/04/18 1 Week Ago History ~07/02/22 omeprazole 20 mg capsule,delayed 20 mg PO DAILY 07/03/22 1 Week Ago History release ~07/02/22 bisoprolol 10 1 tab PO DAILY HEART 07/09/22 1 Week Ago History mg-hydrochlorothiazide 6.25 mg ~07/02/22 tablet cetirizine 10 mg tablet 10 mg PO DAILY ALLERGIES 07/09/22 1 Week Ago History ~07/02/22 tizanidine 4 mg tablet 4 mg PO DAILY MUSCLE RELAXANT 07/09/22 1 Week Ago History ~07/02/22 venlafaxine 150 mg 150 mg PO DAILY DEPRESSION 07/09/22 1 Week Ago History capsule,extended release 24 hr ~07/02/22 ciprofloxacin HCl 500 mg tablet 500 mg PO Q12H #14 tabs 07/10/22 Unknown Rx doxycycline hyclate 100 mg capsule 100 mg PO BID #14 caps 07/10/22 Unknown Rx Allergy/AdvReac Type Severity Reaction Status Date / Time Sulfa (Sulfonamide Allergy Shortness Verified 03/03/24 03:52 Antibiotics) of breath amoxicillin (Amoxicillin) AdvReac Other Verified 03/03/24 03:52 Family History (Updated 07/09/22 @ 19:[address] Jossy Hebert MD) Mother Diabetes Father Mesothelioma Surgical History (Updated 07/09/22 @ 20:[address] Jossy Hebert MD) H/O foot surgery History of elbow surgery History of carpal tunnel surgery Social History (Updated 07/09/22 @ 19:[address] Jossy Hebert MD) household members: family Smoking Status: Light Smoker (<10/day) alcohol intake: former substance use type: does not use ROS ROS ED ROS Narrative Review of systems cannot be obtained secondary to patient's altered mental status Review of Systems ROS Unobtainable: due to mental status EXAM Physical Exam Const Vital Signs: 03/03/24 03:53 03/03/24 03:57 Temperature 98.4 F 98.4 F Temperature Source Oral Oral Pulse Rate 80 80 Respiratory Rate 16 16 Blood Pressure 179/74 H 179/74 H Blood Pressure Mean 109 109 Pulse Ox 97 98 Oxygen Delivery Method Room Air Room Air Positive well nourished and well developed General Appearance ED: well developed; Negative for pallor HEENT Reports moist mucous membranes HEENT Narrative: No tongue or lip swelling no oral lesions no airway edema or compromise No secondary findings in the posterior pharynx to suggest infection Head is normocephalic and atraumatic No tongue or cheek biting noted Eyes EOMs intact bilaterally Eyes Narrative: Pupils are dilated with faint scleral injection and they are sluggish to respond to light Neck supple Neck Narrative: No nuchal rigidity or meningeal signs noted Resp normal respiratory effort and clear to auscultation bilaterally Resp Narrative: Breath sounds are slightly diminished throughout but overall clear to auscultation without nasal flaring retractions tachypnea or accessory muscle use Cardio regular rate and regular rhythm Rate: other Other Details: Heart is regular rate and rhythm without murmurs rubs or gallop Radial and carotid pulses are equal and symmetric GI normal to inspection, nondistended, normoactive bowel sounds, non-tender, non-distended and no masses GI Narrative: No voluntary guarding or rigidity or pulsatile mass Auscultation: normoactive bowel sounds Palpation: soft Extremity normal to inspection Extremity Narrative: No bony deformity or joint effusion or signs of trauma No asymmetric edema no pitting edema negative Homans' sign bilaterally Neuro Neuro Narrative: GCS of 14 Patient is awake and alert to person only. She is disoriented to place and time Strength is plus 5 out of 5 in both the upper and lower extremities No pronator drift no truncal ataxia no dysmetria. Patient received NIH stroke scale score of 1 secondary to her disorientation to place and time however other than the disorientation there are no focal neurologic findings Psych Psych Narrative: Patient has an inappropriate affect Skin no rashes or lesions noted and no wounds General Skin Exam: Negative for jaundice or pallor MDM MDM MDM Narrative Medical decision making narrative: Patient arrived to the ER hypertensive but otherwise with stable vitals. EMS reported that they were called by the patient's because he arrived home and she was altered and playing with her feces. Differential diagnosis is for acute cerebrovascular accident versus alcohol intoxication versus acute drug ingestion versus hepatic encephalopathy versus infectious encephalopathy versus postictal phase from acute seizure. Basic blood work was obtained secondary to this and she does not have a white count and without fever or leukocytosis concern for infection is low. Urine sample also shows no sign of infection. Patient's liver enzymes and ammonia level are normal going against hepatic encephalopathy. Her TSH is elevated but not to a significant enough value that would classify as myxedema coma. Also her creatinine is slightly elevated but chart review reveals this is near baseline and it is not elevated enough to value to classify as acute kidney injury. There is no tongue or cheek biting noted either and therefore concern for seizure is low. The patient did have concern for an acute bleed or mass but noncontrast CT reveals no acute brain bleed or brain tumor. Her exam other than confusion does not show signs of stroke and as urine tox screen is positive for cannabinoids and patient has dilated pupils this is most likely medication/illicit drug use induced. However the patient is still altered upon her evaluation in the ER and therefore do not feel it is safe for her to return home as she has not returned to her baseline mental status. Secondary to this medicine was contacted and they do agree to accept the patient for further care Lab Data Attestation: I reviewed the patient's lab results. Labs: Laboratory Results - last 24 hr 03/03/24 03/03/24 04:04 04:15 WBC 9.7 RBC 4.61 Hgb 14.7 Hct 42.5 MCV 92.2 MCH 31.9 MCHC 34.6 RDW Std Deviation 43.3 RDW Coeff of Laurie 12.9 Plt Count 136 L MPV 10.5 Immature Gran % (Auto) 0.400 Neut % (Auto) 78.5 H Lymph % (Auto) 15.1 L George % (Auto) 5.8 Eos % (Auto) 0.0 Baso % (Auto) 0.2 Absolute Neuts (auto) 7.6 Absolute Lymphs (auto) 1.47 Nucleated RBC % 0 Sodium 135 L Potassium 3.6 Chloride 102 Carbon Dioxide 25.0 Anion Gap 8 BUN 14 Creatinine 1.59 H Estim Creat Clear Calc 37.87 Est GFR (MDRD) Af Amer 43 L Est GFR (MDRD) Non-Af 36 L BUN/Creatinine Ratio 8.8 L Glucose 111 H Calcium 9.1 Total Bilirubin 0.80 Direct Bilirubin 0.18 AST 25 ALT 22 Alkaline Phosphatase 100 Ammonia < 10.0 L Total Protein 7.7 Albumin 3.8 Globulin 3.9 TSH 18.80 H Urine Color Yellow Urine Clarity Clear Urine pH 5.0 Ur Specific [place] 1.025 Urine Protein 30 H Urine Glucose (UA) Normal Urine Ketones Negative Urine Occult Blood Negative Urine Nitrite Negative Urine Bilirubin Negative Urine Urobilinogen Normal Ur Leukocyte Esterase 25 H Urine RBC 0 SEEN Urine WBC 0-5 SEEN Ur Squamous Epith Cells 0 SEEN Urine Bacteria 0 SEEN Hyaline Casts 0-5 SEEN Urine Mucus 0 SEEN Salicylates 3.2 Urine Opiates Screen NEGATIVE Urine Methadone Screen NEGATIVE Acetaminophen < 2.0 L Ur Barbiturates Screen NEGATIVE Ur Phencyclidine Scrn NEGATIVE Ur Amphetamines Screen NEGATIVE MDMA (Ecstasy) Screen NEGATIVE U Benzodiazepines Scrn NEGATIVE Urine Cocaine Screen NEGATIVE U Cannabinoids Screen POSITIVE H Ur Drug Screen Comment Ethyl Alcohol < 3.0 Radiography Diagnostic Testing: Clinical Impression(s) from Imaging Studies Brain CT 03/03/24 03:55 IMPRESSION: No CT evidence of acute intracranial hemorrhage or injury. 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 Chronic sinus disease with hyperdensity compatible with inspissated mucus or chronic allergic fungal disease. Electronically Signed: Tato Serra MD at 5:03 EDT , Management Discussion w/another healthcare provider: Hospitalist Discharge Plan Triage Chief Complaint: Alt LOC ED Provider: Celestine Faye Dx/Rx/DC Orders Clinical Impression: Altered mental status, Use of cannabinoid edibles, Renal insufficiency, Hypertension, Hypothyroidism Prescriptions: No Action gabapentin 600 tablet 900 mg PO TIDCM omeprazole 20 mg capsule,delayed release(DR/EC) 20 mg PO DAILY Patient Comments: TAKE ONE CAPSULE BY MOUTH ONCE DAILY 30 MINUTES BEFORE BREAKFAST cetirizine 10 mg tablet 10 mg PO DAILY Patient Comments: TAKE 1 TABLET BY MOUTH ONCE DAILY NEEDED FOR HIVES bisoprolol-hydrochlorothiazide 10-6.25 mg tablet 1 tab PO DAILY Patient Comments: Take 1 tablet by mouth once daily. tizanidine 4 mg tablet 4 mg PO DAILY Patient Comments: TAKE 1 TABLET BY MOUTH EVERY 6 HOURS NEEDED FOR MUSCLE SPASMS venlafaxine 150 mg capsule,extended release 24hr 150 mg PO DAILY Patient Comments: Take 1 capsule by mouth once daily. doxycycline hyclate 100 mg capsule 100 mg PO BID Qty: 14 0RF ciprofloxacin HCl 500 mg tablet 500 mg PO Q12H Qty: 14 0RF Primary Care Provider: Shawn Aguero Referrals: Shawn Aguero PA [Primary Care Provider] - Print Language: Spanish Disposition Disposition: Acute Care [facility]
[2024-03-03 04:19] LABS: Bacteria 0 SEEN /hpf (None Seen); Mucous, Urine 0 SEEN /hpf (<or=2+); Red Blood Cells-Urine 0 SEEN /hpf (0-5); Squamous Epithelial Cells - UA 0 SEEN /hpf (5-10)
[2024-03-03 04:34] LABS: Color, Urine Yellow (Yellow); Glucose, Dipstick Normal (Normal); Ketone-Dipstick Negative (Negative); Leukocyte Esterase-Dipstick 25 /ul (Negative); Nitrite-Dipstick Negative (Negative); Occult Blood-Urine Negative /ul (Negative); Protein-Dipstick 30 mg/dl (Negative); Specific Gravity, Urine 1.025 (1.002-1.030); Urine Bilirubin Dipstick Negative (Negative); Urine Clarity Clear (Clear); Urine Urobilinogen Normal (Normal)
[2024-03-03 04:38] LABS: Hyaline Cast 0-5 SEEN /lpf (0-5); White Blood Cells 0-5 SEEN /hpf (0-5)
[2024-03-03 04:40] LABS: Acetaminophen (Tylenol) Level < 2.0 ug/mL (10.0-30.0); Alcohol, Blood (Medical)-Serum < 3.0 mg/dL; Ammonia < 10.0 umol/L (11-32); Salicylate 3.2 mg/dL (2.8-20.0)
[2024-03-03 04:43] LABS: AST(SGOT) 25 U/L (15-37); Alanine Aminotransfer ALT/SGPT 22 U/L (13-56); Albumin, Serum 3.8 g/dL (3.2-5.0); Alkaline Phosphatase 100 U/L (45-117); Anion Gap 8 (5-15); BUN 14 mg/dL (7-18); BUN/Creat Ratio 8.8 RATIO (10-20); Bilirubin, Direct 0.18 mg/dL (0.00-0.30); Calcium,Total 9.1 mg/dL (8.5-10.1); Chloride 102 mmol/L (98-107); Creatinine, Serum 1.59 mg/dL (0.55-1.02); EST Glomerular Filtration Rate 36 mL/min (>60); Est Glom Filt Rate - Afr Amer 43 mL/min (>60); Estimated Creatinine Clearance 37.87 ml/min; Globulin 3.9 g/dL (2.2-4.2); Glucose 111 mg/dL (74-106); Potassium 3.6 mmol/L (3.5-5.1); Protein, Total 7.7 g/dL (6.4-8.2); Sodium Level 135 mmol/L (136-145)
[2024-03-03 04:52] LABS: Amphetamine Urine VISTA NEGATIVE (<1000 ng/mL); Barbiturate Urine VISTA NEGATIVE (< 200 ng/mL); Benzodiazepine Urine VISTA NEGATIVE (< 200 ng/mL); Cocaine Urine VISTA NEGATIVE (< 300 ng/mL); Ecstacy Urine VISTA NEGATIVE (< 500 ng/mL); Methadone Urine VISTA NEGATIVE (< 300 ng/mL); PCP Urine VISTA NEGATIVE (< 25 ng/mL); THC Urine VISTA POSITIVE (< 50 ng/mL); Vista UDS pH Range 4
--- NOTE | 2024-03-03 05:05 | ED.RN ---
pt noted to have pulled out iv at this time.
--- NOTE | 2024-03-03 05:29 | HP.PCM.HOS_ITS ---
HPI - General General Date of Service: 03/03/24 Chief Complaint: Confusion HPI Narrative VERNON LUGO, is a 53 F who presents confused. came home to find the patient playing with her own feces and very confused. Brought to the emergency room where she underwent workup was only remarkable for cannabinoids in her drug screen. Patient is very confused and disoriented and it sounds as though she may take several if not more Gummies a day. It is unclear. The hospital service was contacted for evaluation to observe the patient given her profound confusion. [facility] Medical History Fibromyalgia Hypertension Smoker Home Medications ?Medication ?Instructions ?Recorded ?Last Taken ?Type gabapentin 600 mg tablet 900 mg PO TIDCM 05/04/18 1 Week Ago History ~07/02/22 omeprazole 20 mg capsule,delayed 20 mg PO DAILY 07/03/22 1 Week Ago History release ~07/02/22 bisoprolol 10 1 tab PO DAILY HEART 07/09/22 1 Week Ago History mg-hydrochlorothiazide 6.25 mg ~07/02/22 tablet cetirizine 10 mg tablet 10 mg PO DAILY ALLERGIES 07/09/22 1 Week Ago History ~07/02/22 tizanidine 4 mg tablet 4 mg PO DAILY MUSCLE RELAXANT 07/09/22 1 Week Ago History ~07/02/22 venlafaxine 150 mg 150 mg PO DAILY DEPRESSION 07/09/22 1 Week Ago History capsule,extended release 24 hr ~07/02/22 ciprofloxacin HCl 500 mg tablet 500 mg PO Q12H #14 tabs 07/10/22 Unknown Rx doxycycline hyclate 100 mg capsule 100 mg PO BID #14 caps 07/10/22 Unknown Rx Allergy/AdvReac Type Severity Reaction Status Date / Time Sulfa (Sulfonamide Allergy Shortness Verified 03/03/24 03:52 Antibiotics) of breath amoxicillin (Amoxicillin) AdvReac Other Verified 03/03/24 03:52 Family History Mother Diabetes Father Mesothelioma Surgical History H/O foot surgery History of elbow surgery History of carpal tunnel surgery Social History household members: family Smoking Status: Light Smoker (<10/day) alcohol intake: former substance use type: does not use ROS Review of Systems ROS Unobtainable: due to encephalopathy Vital Signs Vital Signs Vital Signs: 03/03/24 03:53 03/03/24 03:57 Temperature 36.9 C 36.9 C Temperature Source Oral Oral Pulse Rate 80 80 Respiratory Rate 16 16 Blood Pressure 179/74 H 179/74 H Blood Pressure Mean 109 109 Pulse Ox 97 98 Oxygen Delivery Method Room Air Room Air Weight Weight: 60.4 kg Body Mass Index (BMI) 21.4 Physical Exam Const Constitutional Narrative: Pleasantly confused. Follows commands. Does not answer questions appropriately. Alert to self. HEENT normocephalic HEENT Narrative: Minimally reactive pupils Resp normal respiratory effort, no retractions, no use of accessory muscles and clear to auscultation bilaterally Cardio regular rate, regular rhythm, S1 normal heart sound and S2 normal heart sound GI normal to inspection, nondistended, normoactive bowel sounds, soft to palpation, non-tender and non-distended Extremity normal to inspection and no clubbing, cyanosis or edema Neuro moves all extremities and no focal motor deficits Sensorium / Orientation: awake and oriented to person; Negative for oriented to place or oriented to time Results Lab / Micro Data 03/03/24 04:04 03/03/24 04:04 Labs: Laboratory Results - last 24 hr 03/03/24 04:04: WBC 9.7, RBC 4.61, Hgb 14.7, Hct 42.5, MCV 92.2, MCH 31.9, MCHC 34.6, RDW Std Deviation 43.3, RDW Coeff of Laurie 12.9, Plt Count 136 L, MPV 10.5, Immature Gran % (Auto) 0.400, Neut % (Auto) 78.5 H, Lymph % (Auto) 15.1 L, [place] % (Auto) 5.8, Eos % (Auto) 0.0, Baso % (Auto) 0.2, Absolute Neuts (auto) 7.6, Absolute Lymphs (auto) 1.47, Nucleated RBC % 0, Sodium 135 L, Potassium 3.6, Chloride 102, Carbon Dioxide 25.0, Anion Gap 8, BUN 14, Creatinine 1.59 H, Estim Creat Clear Calc 37.87, Est GFR (MDRD) Af Amer 43 L, Est GFR (MDRD) Non-Af 36 L, BUN/Creatinine Ratio 8.8 L, Glucose 111 H, Calcium 9.1, Total Bilirubin 0.80, Direct Bilirubin 0.18, AST 25, ALT 22, Alkaline Phosphatase 100, Ammonia < 10.0 L, Total Protein 7.7, Albumin 3.8, Globulin 3.9, TSH 18.80 H, Salicylates 3.2, A cetaminophen < 2.0 L, Ethyl Alcohol < 3.0 03/03/24 04:15: Urine Color Yellow, Urine Clarity Clear, Urine pH 5.0, Ur Specific [place] 1.025, Urine Protein 30 H, Urine Glucose (UA) Normal, Urine Ketones Negative, Urine Occult Blood Negative, Urine Nitrite Negative, Urine Bilirubin Negative, Urine Urobilinogen Normal, Ur Leukocyte Esterase 25 H, Urine RBC 0 SEEN, Urine WBC 0-5 SEEN, Ur Squamous Epith Cells 0 SEEN, Urine Bacteria 0 SEEN, Hyaline Casts 0-5 SEEN, Urine Mucus 0 SEEN, Urine Opiates Screen NEGATIVE, Urine Methadone Screen NEGATIVE, Ur Barbiturates Screen NEGATIVE, Ur Phencyclidine Scrn NEGATIVE, Ur Amphetamines Screen NEGATIVE, MDMA (Ecstasy) Screen NEGATIVE, U Benzodiazepines Scrn NEGATIVE, Urine Cocaine Screen NEGATIVE, U Cannabinoids Screen POSITIVE H, Ur Drug Screen Comment Imaging Radiology Impression Brain CT 03/03/24 03:55 IMPRESSION: No CT evidence of acute intracranial hemorrhage or injury. 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 Chronic sinus disease with hyperdensity compatible with inspissated mucus or chronic allergic fungal disease. 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 She was able to tell me that she does not smoke marijuana. Drug screen was positive for cannabinoids. Does also take gabapentin as well. That will be held for the time being. * It is difficult to get any history from her so it is unable to be obtained if she has cannabinoid misuse disorder. * Plan: Supportive management. Hold potentiating medications. And I discover some IV fluid in time. She has no focal deficits to suggest that this is a stroke. Fibromyalgia: Holding gabapentin Disposition: Plan is to monitor the patient today and if she improves as cannabinol to get out of her system she can likely go home today. Charges/Coding Visit Charges Inpatient E&M: 10114 Init Hosp L2
[2024-03-03] MEDS: 0.9% Normal Saline (1000mL) 1,000 ML 200 ML IV (06:14)
[2024-03-03 08:29] LABS: Free T3 2.1 pg/mL (2.18-3.98)
--- NOTE | 2024-03-03 13:22 | PN_ITS ---
Subjective Subjective Patient seen and examined. She remains very confused. She is alert but does not know where she is and is alert and oriented x 0. Unable to do comprehensive review of systems due to her confusion. Objective Data Objective Data Vital Signs: Vital Signs Temp Pulse Resp BP Pulse Ox O2 Del Method 97.9 F 70 18 165/75 H 98 Room Air 03/03/24 06:06 03/03/24 06:06 03/03/24 06:06 03/03/24 06:06 03/03/24 06:06 03/03/24 06:16 Oxygen Delivery Method Room Air Weight: 139 lb 5.314 oz Body Mass Index (BMI) 22.4 Lab / Micro Data 03/03/24 04:04 03/03/24 04:04 Labs: Laboratory Results - last 24 hr 03/03/24 04:04: WBC 9.7, RBC 4.61, Hgb 14.7, Hct 42.5, MCV 92.2, MCH 31.9, MCHC 34.6, RDW Std Deviation 43.3, RDW Coeff of Laurie 12.9, Plt Count 136 L, MPV 10.5, Immature Gran % (Auto) 0.400, Neut % (Auto) 78.5 H, Lymph % (Auto) 15.1 L, [place] % (Auto) 5.8, Eos % (Auto) 0.0, Baso % (Auto) 0.2, Absolute Neuts (auto) 7.6, Absolute Lymphs (auto) 1.47, Nucleated RBC % 0, Sodium 135 L, Potassium 3.6, Chloride 102, Carbon Dioxide 25.0, Anion Gap 8, BUN 14, Creatinine 1.59 H, Estim Creat Clear Calc 37.87, Est GFR (MDRD) Af Amer 43 L, Est GFR (MDRD) Non-Af 36 L, BUN/Creatinine Ratio 8.8 L, Glucose 111 H, Calcium 9.1, Total Bilirubin 0.80, Direct Bilirubin 0.18, AST 25, ALT 22, Alkaline Phosphatase 100, Ammonia < 10.0 L, Total Protein 7.7, Albumin 3.8, Globulin 3.9, TSH 18.80 H, Free T4 1.00, Free T3 pg/dL 2.1 L, Salicylates 3.2, Acetaminophen < 2.0 L, Ethyl Alcohol < 3.0 03/03/24 04:15: Urine Color Yellow, Urine Clarity Clear, Urine pH 5.0, Ur Specific [place] 1.025, Urine Protein 30 H, Urine Glucose (UA) Normal, Urine Ketones Negative, Urine Occult Blood Negative, Urine Nitrite Negative, Urine Bilirubin Negative, Urine Urobilinogen Normal, Ur Leukocyte Esterase 25 H, Urine RBC 0 SEEN, Urine WBC 0-5 SEEN, Ur Squamous Epith Cells 0 SEEN, Urine Bacteria 0 SEEN, Hyaline Casts 0-5 SEEN, Urine Mucus 0 SEEN, Urine Opiates Screen NEGATIVE, Urine Methadone Screen NEGATIVE, Ur Barbiturates Screen NEGATIVE, Ur Phencyclidine Scrn NEGATIVE, Ur Amphetamines Screen NEGATIVE, MDMA (Ecstasy) Screen NEGATIVE, U Benzodiazepines Scrn NEGATIVE, Urine Cocaine Screen NEGATIVE, U Cannabinoids Screen POSITIVE H, Ur Drug Screen Comment Radiography Diagnostic Testing: Radiology Impression Brain CT 03/03/24 03:55 IMPRESSION: No CT evidence of acute intracranial hemorrhage or injury. 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 Chronic sinus disease with hyperdensity compatible with inspissated mucus or chronic allergic fungal disease. Electronically Signed: Tato Serra MD at 5:03 EDT Reading Location ID and State: [facility] / [place] Tel , Service support , Physical Exam Const alert Orientation / Consciousness: confused HEENT normocephalic, head/scalp atraumatic, moist oral mucous membranes and oropharynx normal Eyes PERRL and EOMs intact bilaterally Neck no lymphadenopathy, supple and no JVD Lymph Lymphatic: no lymphadenopathy noted and no lymphedema noted Cardio regular rate, regular rhythm, S1 normal heart sound, S2 normal heart sound and no murmurs GI normal to inspection, nondistended, normoactive bowel sounds, soft to palpation, non-tender and non-distended Extremity normal capillary refill, no clubbing, cyanosis or edema and no calf tenderness General Extremity: no tenderness to palpation of joints or extremities Skin General Skin Exam: no breakdown Neuro CN's II-XII intact bilaterally, no focal motor deficits, no sensory deficits noted and deep tendon reflexes 2+ bilaterally Motor Exam: strength 5/5 throughout and general weakness Psych thought process normal and cooperative Appearance: appropriate Assessment & Plan Assessment/Plan (1) Toxic encephalopathy: (2) Hypothyroidism: (3) Use of cannabinoid edibles: PLAN: Plan #Acute encephalopathy * etiology is unclear, but is suspected to be due to cannabis toxicity. * patient take cannabis gummies. It is thought she may have taken more than usual * TSH is also 18.8, but T4 is only 1 and free T2 is slightly low at 2.1. * Urinalysis showed no evidence of infection and urine tox was positive for cannabinoids. * serum alcohol level is <3. * CT of the brain showed no acute intracranial pathology. Will get MRI of the brain with and without contrast * PT/O on #FIbromyalgia: stable. Gabapentin on hold. #Elevated TSH: TSH is 18. Free T4 is normal but free T3 slightly low at 1. Will start on synthroid due to the markedly elevated TSH DVT prophylaxis: lovenox Charges/Coding Visit Charges Inpatient E&M: 82127 Subs Hosp L2
--- NOTE | 2024-03-03 15:03 | NURSING ---
Attempted to call pt's significant other, message states number is not in service. Attempting to find contact info for patients daughter for history information re: MRI
[2024-03-04 04:11] VITALS: BP 155/98; PULSE 74; RESP 18; TEMP 36.8; O2SAT 98
[2024-03-04 08:09] LABS: Absolute Lymphocyte Count 2.42 X10^3/uL (0.83-4.51); Absolute Neutrophil Count 4.2 X10^3/uL (2.0-7.7); Basophil# 0.02 X10^3/uL; Basophil% 0.3 % (0-1); Eosinophil# 0.01 X10^3/uL; Eosinophils% 0.1 % (0-5); Hemoglobin 16.2 g/dL (12.0-15.0); Lymphocyte # 2.42 X10^3/ul (0.83-4.51); Lymphocyte % 33.4 % (19-41); Mean Corp Hgb Conc 34.5 g/dL (32-36); Mean Corpuscular Hgb 31.8 pg (27.0-32.0); Mean Corpuscular Volume 92.3 fL (81-99); Mean Platelet Vol. 10.7 fl (6.2-12.0); Monocyte# 0.61 X10^3/uL; Monocyte% 8.4 % (0-10); NRBC Flagged by Analyzer 0 % (0-5); Neutrophil # 4.15 X10^3/uL (2.7-7.7); Neutrophil % 57.4 % (47-70); Platelet Count 157 K/mm3 (150-450); RBC Distribution Width CV 12.7 % (11.6-14.6); RBC Distribution Width SD 42.9 fl (35.1-43.9); Red Blood Count 5.09 M/mm3 (4.2-5.4); White Blood Count 7.2 K/mm3 (4.4-11.0)
[2024-03-04] MEDS: LORazepam 1 MG Tablet PO ×2 (08:41→13:13)
[2024-03-04 10:15] VITALS: BP 124/105; PULSE 59; RESP 18; TEMP 37.1; O2SAT 98
--- NOTE | 2024-03-04 10:16 | PN_ITS ---
Subjective Subjective Patient seen and examined. She remains confused. He cannot tell me where she is or what the year is or who the motion picture commentator is. She has remained hemodynamically stable. She is for MRI of the brain today. Objective Data Objective Data Vital Signs: Vital Signs Temp Pulse Resp BP Pulse Ox O2 Del Method 98.2 F 74 18 155/98 H 98 Room Air 03/04/24 04:11 03/04/24 04:11 03/04/24 04:11 03/04/24 04:11 03/04/24 04:11 03/04/24 04:11 Oxygen Delivery Method Room Air Weight: 139 lb 5.314 oz Body Mass Index (BMI) 22.4 Intake & Output: Intake and Output for Last 24 Hours 03/02/24 03/03/24 03/04/24 23:59 23:59 23:59 Intake Total 1720 / 1720 600 / 600 Balance 1720 / 1720 600 / 600 Lab / Micro Data 03/04/24 07:44 03/04/24 07:44 Labs: Laboratory Results - last 24 hr 03/04/24 07:44: WBC 7.2, RBC 5.09, Hgb 16.2 H, Hct 47.0, MCV 92.3, MCH 31.8, MCHC 34.5, RDW Std Deviation 42.9, RDW Coeff of Laurie 12.7, Plt Count 157, MPV 10.7, Immature Gran % (Auto) 0.400, Neut % (Auto) 57.4, Lymph % (Auto) 33.4, [place] % (Auto) 8.4, Eos % (Auto) 0.1, Baso % (Auto) 0.3, Absolute Neuts (auto) 4.2, Absolute Lymphs (auto) 2.42, Nucleated RBC % 0, TSH 16.90 H Physical Exam Const alert Constitutional Narrative: Pleasantly confused. Follows commands. Does not answer questions appropriately. Alert to self. General Appearance: cooperative Orientation / Consciousness: confused HEENT normocephalic, head/scalp atraumatic, moist oral mucous membranes and oropharynx normal Eyes PERRL and EOMs intact bilaterally Neck no lymphadenopathy, supple and no JVD Lymph Lymphatic: no lymphadenopathy noted and no lymphedema noted Resp normal respiratory effort, normal air movement, no retractions, no use of accessory muscles and clear to auscultation bilaterally Cardio regular rate, regular rhythm, S1 normal heart sound, S2 normal heart sound and no murmurs GI normal to inspection, nondistended, normoactive bowel sounds, soft to palpation, non-tender and non-distended Extremity normal to inspection, normal capillary refill, no clubbing, cyanosis or edema and no calf tenderness General Extremity: no tenderness to palpation of joints or extremities Skin General Skin Exam: no breakdown Neuro CN's II-XII intact bilaterally, moves all extremities, no focal motor deficits, no sensory deficits noted and deep tendon reflexes 2+ bilaterally Sensorium / Orientation: awake and oriented to person; Negative for oriented to place or oriented to time Motor Exam: strength 5/5 throughout and general weakness Psych thought process normal and cooperative Appearance: appropriate Assessment & Plan Assessment/Plan (1) Toxic encephalopathy: (2) Hypothyroidism: (3) Use of cannabinoid edibles: PLAN: Plan #Acute encephalopathy * etiology is unclear, but is suspected to be due to cannabis toxicity. * patient take cannabis gummies. It is thought she may have taken more than usual * TSH was also 18.8, but T4 is only 1 and free T2 is slightly low at 2.1. * Urinalysis showed no evidence of infection and urine tox was positive for cannabinoids. * serum alcohol level is <3. * CT of the brain showed no acute intracranial pathology. Will get MRI of the brain with and without contrast * PT/O on board. Fall precautions. * get neurology consult * check vitamin B12 and folate as well as syphilis screen. * #FIbromyalgia: stable. Gabapentin on hold. #Elevated TSH: TSH is 18. Free T4 is normal but free T3 slightly low at 1. Repeat TSH is 16.9. Will start on synthroid 25mcg daily DVT prophylaxis: lovenox Charges/Coding Visit Charges Inpatient E&M: 85524 Subs Hosp L2
[2024-03-04 10:18] LABS: Anion Gap 7 (5-15); BUN 10 mg/dL (7-18); BUN/Creat Ratio 6.8 RATIO (10-20); Calcium,Total 9.4 mg/dL (8.5-10.1); Chloride 108 mmol/L (98-107); Creatinine, Serum 1.47 mg/dL (0.55-1.02); EST Glomerular Filtration Rate 39 mL/min (>60); Est Glom Filt Rate - Afr Amer 48 mL/min (>60); Estimated Creatinine Clearance 40.96 ml/min; Glucose 115 mg/dL (74-106); Potassium 3.7 mmol/L (3.5-5.1); Sodium Level 140 mmol/L (136-145)
[2024-03-04] MEDS: Venlafaxine XR 150 MG Capsule PO (11:32)
[2024-03-04] MEDS: Pantoprazole Sodium 20 MG Tablet PO (11:33)
[2024-03-04] MEDS: tiZANidine HCl 2 MG Tablet 4 MG PO (11:33)
[2024-03-04] MEDS: hydroCHLOROthiazide 6.25mg TAB 6.25 MG PO (11:33)
[2024-03-04 11:44] LABS: Syphilis Antibodies Non-reactive; Vitamin B12 369 pg/mL (211-911)
--- NOTE | 2024-03-04 14:49 | NURSING ---
aware of change in plans per radiology nurse, primary RN to administer ativan and monitor pt during MRI
[2024-03-04] MEDS: LORazepam 2 MG/ML Syringe 1 MG IV (14:55)
--- NOTE | 2024-03-04 14:57 | CON.PCM.NE_ITS ---
Assessment and Plan: Neuro Assessment/Plan VERNON LUGO is a 53 F with a past medical history ofmarjuana use, being evaluated by Teleneurology for encephalopathy. Exam is nonfocal but very abnormal in terns of severe encephalopathy. At this time, history is s limited and exam is nonfocal. Will need additional history and workup Plan: - if unable to get MRI Brain, recommend repeat CTH - additional workup after getting more history from . - recommend routine eEG I personally attended this patient and spent a total time of 30 minutes evaluating this patient including clinical assessment, review of chart, medical history imaging, and determining appropriate treatment and workup. HPI Consult Data Date of Consult: 03/04/24 HPI Narrative HPI Narrative: VERNON LUGO, is a 53 F who presents confused. came home to find the patient playing with her own feces and very confused. Brought to the emergency room where she underwent workup was only remarkable for cannabinoids in her drug screen. Patient is very confused and disoriented and it sounds as though she may take several if not more Gummies a day. It is unclear. The hospital service was contacted for evaluation to observe the patient given her profound confusion. Pt remains persistently confused the last several days. Attempted to call [facility] for more history and did not get any. Discussed with RN - pt was confused and distractable and not sure what is going on. Recieved some Ativan prior to imaging and unfortunately seeing her after Ativan. She does not say anything, very altered, does follow commands. Unable to provide details of her own history PFSH Medical History Fibromyalgia Hypertension Smoker Home Medications ?Medication ?Instructions ?Recorded ?Last Taken ?Type gabapentin 600 mg tablet 900 mg PO TIDCM 05/04/18 1 Week Ago History ~07/02/22 omeprazole 20 mg capsule,delayed 20 mg PO DAILY 07/03/22 1 Week Ago History release ~07/02/22 bisoprolol 10 1 tab PO DAILY HEART 07/09/22 1 Week Ago History mg-hydrochlorothiazide 6.25 mg ~07/02/22 tablet cetirizine 10 mg tablet 10 mg PO DAILY ALLERGIES 07/09/22 1 Week Ago History ~07/02/22 tizanidine 4 mg tablet 4 mg PO DAILY MUSCLE RELAXANT 07/09/22 1 Week Ago History ~07/02/22 venlafaxine 150 mg 150 mg PO DAILY DEPRESSION 07/09/22 1 Week Ago History capsule,extended release 24 hr ~07/02/22 ciprofloxacin HCl 500 mg tablet 500 mg PO Q12H #14 tabs 07/10/22 Unknown Rx doxycycline hyclate 100 mg capsule 100 mg PO BID #14 caps 07/10/22 Unknown Rx bisoprolol fumarate 10 mg tablet 10 mg PO DAILY 03/03/24 Unknown History Allergy/AdvReac Type Severity Reaction Status Date / Time Sulfa (Sulfonamide Allergy Shortness Verified 03/03/24 03:52 Antibiotics) of breath amoxicillin (Amoxicillin) AdvReac Other Verified 03/03/24 03:52 Family History Mother Diabetes Father Mesothelioma Surgical History H/O foot surgery History of elbow surgery History of carpal tunnel surgery Social History household members: family Smoking Status: Light Smoker (<10/day) alcohol intake: former substance use type: does not use Vital Signs Vital Signs Vital Signs: 03/03/24 20:30 03/04/24 04:11 03/04/24 10:15 Temperature 97.6 F L 98.2 F 98.7 F Temperature Source Oral Oral Oral Pulse Rate 63 74 59 L Respiratory Rate 18 18 18 Blood Pressure 123/100 H 155/98 H 124/105 H Blood Pressure Mean 107 117 111 Blood Pressure Source Monitor Monitor Monitor Blood Pressure Position Sitting Semi-Fowlers Sitting Blood Pressure Location Right Arm Left Arm Left Arm Pulse Ox 97 98 98 Oxygen Delivery Method Room Air Room Air Room Air Weight Weight: 63.2 kg Body Mass Index (BMI) 22.4 EEG Results Procedure Details EEG Procedure Details: VERNON LUGO is a 53 year old F with a past medical history of , who presents for evaluation of Electroencephalogram on DATE at TIME Physical Exam Narrative Pt sitting up and eyes closed, will open eyes and horizontal EOMI No facial asymmetry UE antigravity b/l, minimal drift b/l LE withdraw to noxious stim Largely mute but comprehension appears interntitly able to follow commands Lab / Micro Data 03/04/24 07:44 03/04/24 07:44 Labs: Laboratory Results - last 24 hr 03/04/24 07:44: WBC 7.2, RBC 5.09, Hgb 16.2 H, Hct 47.0, MCV 92.3, MCH 31.8, MCHC 34.5, RDW Std Deviation 42.9, RDW Coeff of Laurie 12.7, Plt Count 157, MPV 10.7, Immature Gran % (Auto) 0.400, Neut % (Auto) 57.4, Lymph % (Auto) 33.4, [place] % (Auto) 8.4, Eos % (Auto) 0.1, Baso % (Auto) 0.3, Absolute Neuts (auto) 4.2, Absolute Lymphs (auto) 2.42, Nucleated RBC % 0, Sodium 140, Potassium 3.7, Chloride 108 H, Carbon Dioxide 25.0, Anion Gap 7, BUN 10, Creatinine 1.47 H, Estim Creat Clear Calc 40.96, Est GFR (MDRD) Af Amer 48 L, Est GFR (MDRD) Non-Af 39 L, BUN/Creatinine Ratio 6.8 L, Glucose 115 H, Calcium 9.4, Vitamin B12 369, T SH 16.90 H, Syphilis Total Ab Non-reactive Active Medications Active Medications Active Medications: Current Medications Generic Name Dose Route Start Last Admin Trade Name Freq PRN Reason Stop Dose Admin Acetaminophen 650 mg 03/03/24 05:48 Acetaminophen 325 Mg Tablet PO Q6H PRN PRN Pain 1-10 Or Fever>100.7 Bisoprolol Fumarate 10 mg 03/04/24 10:00 03/04/24 11:36 Bisoprolol Fumarate 5 Mg Tablet PO Not Given DAILY PENNY Hydrochlorothiazide 6.25 mg 03/04/24 10:00 03/04/24 11:33 Hydrochlorothiazide 6.25mg Tab PO 6.25 mg DAILY PENNY Administration Sodium Chloride 250 mls @ 15 mls/hr 03/03/24 06:04 IV .[id number] PRN Additional IVPB Infusion Sodium Chloride 250 mls @ 15 mls/hr 03/03/24 06:04 IV .[id number] PRN Saline Flush Levothyroxine Sodium 25 mcg 03/05/24 06:00 Levothyroxine 25 Mcg Tablet PO DAILY@0600 PENNY Lorazepam 1 mg 03/04/24 12:58 03/04/24 13:13 Lorazepam 1 Mg Tablet PO 1 mg Q6H PRN PRN Administration ANXIETY/AGITATION Lorazepam 1 mg 03/04/24 15:00 Lorazepam 2 Mg/Ml Syringe IV 03/04/24 15:01 X1 ONE Pantoprazole Sodium 20 mg 03/04/24 10:00 03/04/24 11:33 Pantoprazole Sodium 20 Mg Tablet PO 20 mg DAILY PENNY Administration Sodium Chloride 10 - 40 ml 03/03/24 06:04 0.9% Saline Lock 10 Ml Syringe IV UD PRN SALINE FLUSH Tizanidine HCl 4 mg 03/04/24 10:00 03/04/24 11:33 Tizanidine Hcl 2 Mg Tablet PO 4 mg DAILY PENNY Administration Venlafaxine HCl 150 mg 03/04/24 10:00 03/04/24 11:32 Venlafaxine Xr 150 Mg Capsule PO 150 mg DAILY PENNY Administration
--- NOTE | 2024-03-04 15:21 | CT_ITS ---
STUDY: CT BRAIN WITHOUT CONTRAST REASON FOR EXAM: Female, 53 years old. altered mental status RADIATION DOSAGE (If Supplied By Facility): CTDIvol = ( 44.99 ) mGy, DLP = ( 1856.56 ) mGycm TECHNIQUE: Transaxial CT imaging of the brain was performed without administration of intravenous contrast material. Individualized dose optimization techniques were used for this CT. COMPARISON: March 03, 2024. FINDINGS: Limited study due to extensive motion artifact Normal soft tissue structures. Normal calvarium. Mild atrophy and periventricular white matter ischemic changes. Probable old left occipital infarct Normal basal ganglia and thalami. Normal brainstem. Old right cerebellar infarct. There is no intracranial hemorrhage. There are no findings of an acute ischemic infarction. Complex mucosal thickening left maxillary sinus possibly due to fungal disease.. No significant change since prior exam given limitation of motion artifact CT/Brain/Head without Contrast IMPRESSION: Mild atrophy and periventricular white matter ischemic changes. 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 No acute bleed If strong clinical suspicion for acute infarct MRI recommended Electronically Signed: Hiram Manzo MD at 16:54 EDT ,
[2024-03-04 15:40] VITALS: BP 151/85; PULSE 85; RESP 14; TEMP 36.8; O2SAT 98
[2024-03-04 21:26] VITALS: BP 150/80; PULSE 78; RESP 15; TEMP 36.9; O2SAT 97
[2024-03-04 22:43] VITALS: RESP 15
[2024-03-05] VITALS (9 sets, daily range): BP systolic 143–179; BP diastolic 79–94; PULSE 71–88; RESP 15–18; TEMP 36.4–37.2; O2SAT 98–100
[2024-03-05] MEDS: Levothyroxine 25 MCG TABLET PO (05:09)
[2024-03-05 06:36] LABS: Absolute Lymphocyte Count 1.74 X10^3/uL (0.83-4.51); Absolute Neutrophil Count 5.4 X10^3/uL (2.0-7.7); Basophil# 0.01 X10^3/uL; Basophil% 0.1 % (0-1); Hemoglobin 16.1 g/dL (12.0-15.0); Lymphocyte # 1.74 X10^3/ul (0.83-4.51); Lymphocyte % 22.3 % (19-41); Mean Corpuscular Hgb 32.1 pg (27.0-32.0); Mean Corpuscular Volume 91.6 fL (81-99); Mean Platelet Vol. 10.9 fl (6.2-12.0); Monocyte# 0.61 X10^3/uL; Monocyte% 7.8 % (0-10); NRBC Flagged by Analyzer 0 % (0-5); Neutrophil # 5.42 X10^3/uL (2.7-7.7); Neutrophil % 69.4 % (47-70); Platelet Count 160 K/mm3 (150-450); RBC Distribution Width CV 12.5 % (11.6-14.6); RBC Distribution Width SD 41.9 fl (35.1-43.9); Red Blood Count 5.02 M/mm3 (4.2-5.4); White Blood Count 7.8 K/mm3 (4.4-11.0)
[2024-03-05 06:58] LABS: Anion Gap 9 (5-15); BUN 12 mg/dL (7-18); BUN/Creat Ratio 7.6 RATIO (10-20); Calcium,Total 9.4 mg/dL (8.5-10.1); Chloride 105 mmol/L (98-107); Creatinine, Serum 1.58 mg/dL (0.55-1.02); EST Glomerular Filtration Rate 36 mL/min (>60); Est Glom Filt Rate - Afr Amer 44 mL/min (>60); Estimated Creatinine Clearance 38.11 ml/min; Glucose 97 mg/dL (74-106); Potassium 3.5 mmol/L (3.5-5.1); Sodium Level 136 mmol/L (136-145)
[2024-03-05] MEDS: Venlafaxine XR 150 MG Capsule PO (09:07)
[2024-03-05] MEDS: hydroCHLOROthiazide 6.25mg TAB 6.25 MG PO (09:07)
[2024-03-05] MEDS: Bisoprolol Fumarate 5 MG Tablet 10 MG PO (09:07)
[2024-03-05] MEDS: Pantoprazole Sodium 20 MG Tablet PO (09:08)
[2024-03-05] MEDS: tiZANidine HCl 2 MG Tablet 4 MG PO (09:08)
--- NOTE | 2024-03-05 09:46 | PN_ITS ---
Subjective Subjective Patient seen and examined. She remains confused. Unable to do review of systems. She is alert and oriented to person only. She could not have MRI yesterday, and per neurology recommendation, had CT brain which showed no acute intracranial pathology. Objective Data Objective Data Vital Signs: Vital Signs Temp Pulse Resp BP Pulse Ox O2 Del Method 98.6 F 88 16 158/87 H 98 Room Air 03/05/24 08:39 03/05/24 08:39 03/05/24 08:39 03/05/24 08:39 03/05/24 08:54 03/05/24 08:54 Oxygen Delivery Method Room Air Weight: 139 lb 5.314 oz Body Mass Index (BMI) 22.4 Intake & Output: Intake and Output for Last 24 Hours 03/03/24 03/04/24 03/05/24 23:59 23:59 23:59 Intake Total 1720 / 1720 1000 / 1000 Balance 1720 / 1720 1000 / 1000 Lab / Micro Data 03/05/24 06:10 03/05/24 06:10 Labs: Laboratory Results - last 24 hr 03/04/24 07:44: Sodium 140, Potassium 3.7, Chloride 108 H, Carbon Dioxide 25.0, Anion Gap 7, BUN 10, Creatinine 1.47 H, Estim Creat Clear Calc 40.96, Est GFR (MDRD) Af Amer 48 L, Est GFR (MDRD) Non-Af 39 L, BUN/Creatinine Ratio 6.8 L, G lucose 115 H, Calcium 9.4, Vitamin B12 369, Syphilis Total Ab Non-reactive 03/05/24 06:10: WBC 7.8, RBC 5.02, Hgb 16.1 H, Hct 46.0, MCV 91.6, MCH 32.1 H, MCHC 35.0, RDW Std Deviation 41.9, RDW Coeff of Laurie 12.5, Plt Count 160, MPV 10.9, Immature Gran % (Auto) 0.400, Neut % (Auto) 69.4, Lymph % (Auto) 22.3, [place] % (Auto) 7.8, Eos % (Auto) 0.0, Baso % (Auto) 0.1, Absolute Neuts (auto) 5.4, Absolute Lymphs (auto) 1.74, Nucleated RBC % 0, Sodium 136, Potassium 3.5, Chloride 105, Carbon Dioxide 22.0, Anion Gap 9, BUN 12, Creatinine 1.58 H, Estim Creat Clear Calc 38.11, Est GFR (MDRD) Af Amer 44 L, Est GFR (MDRD) Non-Af 36 L, BUN/Creatinine Ratio 7.6 L, Glucose 97, Calcium 9.4 Radiography Diagnostic Testing: Radiology Impression Brain CT 03/04/24 15:21 IMPRESSION: Mild atrophy and periventricular white matter ischemic changes. 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 No acute bleed If strong clinical suspicion for acute infarct MRI recommended Electronically Signed: Hiram Manzo MD at 16:54 EDT Reading Location ID and State: [facility] / [place] Tel , Service support , Physical Exam Const alert Constitutional Narrative: Pleasantly confused. Follows commands. Does not answer questions appropriately. Alert to self only. General Appearance: cooperative Orientation / Consciousness: confused HEENT normocephalic, head/scalp atraumatic, moist oral mucous membranes and oropharynx normal Eyes PERRL and EOMs intact bilaterally Neck no lymphadenopathy, supple and no JVD Lymph Lymphatic: no lymphadenopathy noted and no lymphedema noted Resp normal respiratory effort, normal air movement, no retractions, no use of accessory muscles and clear to auscultation bilaterally Cardio regular rate, regular rhythm, S1 normal heart sound, S2 normal heart sound and no murmurs GI normal to inspection, nondistended, normoactive bowel sounds, soft to palpation, non-tender and non-distended Extremity normal to inspection, normal capillary refill, no clubbing, cyanosis or edema and no calf tenderness General Extremity: no tenderness to palpation of joints or extremities Skin General Skin Exam: no breakdown Neuro CN's II-XII intact bilaterally, moves all extremities, no focal motor deficits, no sensory deficits noted and deep tendon reflexes 2+ bilaterally Sensorium / Orientation: awake and oriented to person; Negative for oriented to place or oriented to time Motor Exam: strength 5/5 throughout and general weakness Psych cooperative Psych Narrative: confused. Assessment & Plan Assessment/Plan (1) Toxic encephalopathy: (2) Hypothyroidism: (3) Use of cannabinoid edibles: PLAN: Plan #Acute encephalopathy * etiology is unclear, but is suspected to be due to cannabis toxicity. * patient take cannabis gummies. It is thought she may have taken more than usual * TSH was also 18.8, but T4 is only 1 and free T2 is slightly low at 2.1. * Urinalysis showed no evidence of infection and urine tox was positive for cannabinoids. * serum alcohol level is <3. * CT of the brain showed no acute intracranial pathology. Will get MRI of the brain with and without contrast * PT/O on board. Fall precautions. * vitamin B12 and folate levels are pending. * syphilis antibody screen pending. * neurology on board. EEG done. * #FIbromyalgia: stable. Gabapentin on hold. #Elevated TSH: TSH is 18. Free T4 is normal but free T3 slightly low at 1. Repeat TSH is 16.9. Started on synthroid 25mcg daily DVT prophylaxis: lovenox Charges/Coding Visit Charges Inpatient E&M: 31608 Subs Hosp L2
--- NOTE | 2024-03-05 11:16 | CASEMGMT ---
Social Work- SW continues to follow pt. PT has neuro consult and other medical needs that are being addressed as she remains confused and disoriented. SW to follow up with crisis/psych when pt becomes medically stable. MENDOZA Mujica
--- NOTE | 2024-03-05 22:33 | NEURO.PNOTE ---
Assessment and Plan: Neuro Assessment/Plan VERNON LUGO is a 53 F with a past medical history ofmarjuana use, being evaluated by Teleneurology for encephalopathy. Exam is nonfocal marred largely by distractability but no focal findings. At this time, history is s limited and exam is nonfocal. Will need additional history and workup - if signficant other comes to visit, please message Neurology group. - continue treating hypothyroidism - unclear if pt is returned to baseline, would be odd for annabinoids to last this long in pt's system - repeat CTH imaging wnl, pt more cooperative, recommend attempting to obtain MRI brain if possible - if pt remains altered beyond her normal, would consider LP Subject: Neurology Subjective VERNON LUGO is a 53 year old F, who we are seeing in consultation today for advice on the management of encephalopathy and related patient care. Today pt is much more awake, she is still confused however and states that she uses cannabanoids weekly and that she had her last dose on Friday. She laughs a great deal and states that she feels significantly improved. She denies changes in her home medications. Significant other was at hostpial yesterday - she states name is Reymundo. No response to calling the numbner in the chart. EEG Results Procedure Details EEG Procedure Details: VERNON LUGO is a 53 year old F with a past medical history of , who presents for evaluation of Electroencephalogram on DATE at TIME Objective Data Objective Data Vital Signs: Vital Signs Temp Pulse Resp BP Pulse Ox O2 Del Method 97.6 F L 71 16 172/94 H 100 Room Air 03/05/24 20:34 03/05/24 20:34 03/05/24 20:34 03/05/24 20:41 03/05/24 20:34 03/05/24 20:34 Oxygen Delivery Method Room Air Weight: 63.2 kg Body Mass Index (BMI) 22.4 Intake & Output: Intake and Output for Last 24 Hours 03/03/24 03/04/24 03/05/24 23:59 23:59 23:59 Intake Total 1720 / 1720 1000 / 1000 890 / 890 Balance 1720 / 1720 1000 / 1000 890 / 890 Lab / Micro Data 03/05/24 06:10 03/05/24 06:10 Labs: Laboratory Results - last 24 hr 03/05/24 06:10: WBC 7.8, RBC 5.02, Hgb 16.1 H, Hct 46.0, MCV 91.6, MCH 32.1 H, MCHC 35.0, RDW Std Deviation 41.9, RDW Coeff of Laurie 12.5, Plt Count 160, MPV 10.9, Immature Gran % (Auto) 0.400, Neut % (Auto) 69.4, Lymph % (Auto) 22.3, [place] % (Auto) 7.8, Eos % (Auto) 0.0, Baso % (Auto) 0.1, Absolute Neuts (auto) 5.4, Absolute Lymphs (auto) 1.74, Nucleated RBC % 0, Sodium 136, Potassium 3.5, Chloride 105, Carbon Dioxide 22.0, Anion Gap 9, BUN 12, Creatinine 1.58 H, Estim Creat Clear Calc 38.11, Est GFR (MDRD) Af Amer 44 L, Est GFR (MDRD) Non-Af 36 L, BUN/Creatinine Ratio 7.6 L, Glucose 97, Calcium 9.4 Physical Exam Narrative -? General: Laying comfortably in bed; in no acute distress. -? HENT: Normal oropharynx and mucosa. Normal external appearance of ears and nose. Exophthalmos. -? Neck: Supple, no pain or tenderness -? CV:? No peripheral edema. -? Pulmonary:? Normal respiratory effort. -? Ext: No cyanosis, edema, or deformity -? Skin: No rash. Normal palpation of skin.? -? Musculoskeletal: full range of motion; no joint tenderness. Normal digits and nails by inspection. No clubbing. -? NEURO: -? Mental Status: The patient was alert and oriented to time, place, and person. Normal recent/remote memory, concentration, and general fund of knowledge. -? Language: speech is clear.? Naming, repetition, fluency, and comprehension intact. -? Cranial Nerves: PERRL 3 mm/brisk. EOMI, visual spear full, no facial asymmetry, facial sensation intact, hearing intact, tongue midline, no evidence of atrophy or fibrillations -? Motor: normal bulk, tone, and strength throughout. No pronator drift or satelliting. Upper and lower extremities equal bilaterally. -? Tone: is normal and bulk is normal -? Sensation- Intact to light touch bilaterally -? Coordination: No dysmetria on [id number], finger follow finger or [id number]. -? Gait- deferred
[2024-03-06 03:00] VITALS: O2SAT 98
[2024-03-06 03:55] VITALS: BP 177/75; PULSE 60; RESP 16; TEMP 36.8; O2SAT 99
[2024-03-06 06:24] LABS: Absolute Lymphocyte Count 2.27 X10^3/uL (0.83-4.51); Absolute Neutrophil Count 6.2 X10^3/uL (2.0-7.7); Basophil# 0.03 X10^3/uL; Basophil% 0.3 % (0-1); Eosinophil# 0.01 X10^3/uL; Eosinophils% 0.1 % (0-5); Hematocrit 46.8 % (37-47); Hemoglobin 16.3 g/dL (12.0-15.0); Lymphocyte # 2.27 X10^3/ul (0.83-4.51); Lymphocyte % 24.3 % (19-41); Mean Corp Hgb Conc 34.8 g/dL (32-36); Mean Corpuscular Hgb 31.5 pg (27.0-32.0); Mean Corpuscular Volume 90.3 fL (81-99); Mean Platelet Vol. 11.3 fl (6.2-12.0); Monocyte# 0.75 X10^3/uL; NRBC Flagged by Analyzer 0 % (0-5); Neutrophil # 6.24 X10^3/uL (2.7-7.7); Platelet Count 151 K/mm3 (150-450); RBC Distribution Width CV 12.3 % (11.6-14.6); RBC Distribution Width SD 40.6 fl (35.1-43.9); Red Blood Count 5.18 M/mm3 (4.2-5.4); White Blood Count 9.3 K/mm3 (4.4-11.0)
[2024-03-06] MEDS: Levothyroxine 25 MCG TABLET PO (06:27)
[2024-03-06 06:38] LABS: Anion Gap 8 (5-15); BUN 17 mg/dL (7-18); BUN/Creat Ratio 10.6 RATIO (10-20); Calcium,Total 9.3 mg/dL (8.5-10.1); Chloride 102 mmol/L (98-107); Creatinine, Serum 1.61 mg/dL (0.55-1.02); EST Glomerular Filtration Rate 35 mL/min (>60); Est Glom Filt Rate - Afr Amer 43 mL/min (>60); Glucose 121 mg/dL (74-106); Potassium 3.3 mmol/L (3.5-5.1); Sodium Level 134 mmol/L (136-145)
--- NOTE | 2024-03-06 08:48 | MRI_ITS ---
STUDY: MRI BRAIN WITHOUT CONTRAST REASON FOR EXAM: Female, 53 years old. encephalopathy -- no IV access, patient refusing TECHNIQUE: Standardized multiplanar fat and water weighted pulse sequences were obtained. COMPARISON: Head CT dated March 04, 2024 FINDINGS: There is mild cerebral atrophy with widening of the extra-axial spaces and ventricular dilatation. There are a limited number of small white matter hyperintensities, distributed throughout the deep white matter tracts of the cerebral hemispheres, consistent with mild chronic white matter ischemic changes. There is no evidence for recent intracranial ischemia or other cause of cytotoxic edema on diffusion weighted imaging (DWI). Normal T2* images of the brain without demonstrated susceptibility artifact. There is no demonstrated hemosiderin stain. There are no demyelinating plagues of the supratentorial brain, brainstem or cerebellum. There are no findings suspicious for multiple sclerosis (MS). No visualized hydrocephalus or midline shift. No signal abnormality to demonstrate anoxic or hypoxic ischemic encephalopathy. Normal bilateral basal ganglia. Normal thalami. There is no extra-axial fluid accumulation. Normal flow voids within the major intracranial circulation suggesting patency by spin echo criteria. Normal sella turcica, pituitary gland, infundibular stalk, optic chiasm and hypothalamus. Normal tectal plate and pineal gland. There are chronic white matter ischemic changes of the vinny. The midbrain and medulla are otherwise normal. Normal cerebellum. Normal basal cisterns. Normal bilateral temporal bones. Normal bilateral internal auditory canals. No demonstrated orbital abnormality, within the constraints of a routine brain study. Normal visualized paranasal sinuses. Normal calvarium and skull base. Normal visualized soft tissue structures. Normal visualized upper cervical spine. MRI/Brain without Contrast IMPRESSION: 1. Involutional changes of the brain, as described above. 2. No demonstrated acute infarct or intracranial hemorrhage. 3. No visualized hydrocephalus or midline shift. No signal abnormality to demonstrate anoxic or hypoxic ischemic encephalopathy. Electronically Signed: Leandro Coates MD at 13:03 EDT ,
[2024-03-06 09:00] VITALS: BP 144/78; PULSE 67; RESP 18; TEMP 36.5; O2SAT 99
--- NOTE | 2024-03-06 09:05 | NURSING ---
potassium not in omnicell for retrieval
--- NOTE | 2024-03-06 09:08 | NURSING ---
pt refusing any iv access
[2024-03-06] MEDS: Haloperidol Lactate 5 MG/ML Vial 1 MG IM (09:22)
[2024-03-06] MEDS: Potassium Chloride Oral Tablet 20 MEQ 40 MEQ PO (09:23)
[2024-03-06] MEDS: Venlafaxine XR 150 MG Capsule PO (09:23)
[2024-03-06] MEDS: hydroCHLOROthiazide 6.25mg TAB 6.25 MG PO (09:24)
[2024-03-06] MEDS: Pantoprazole Sodium 20 MG Tablet PO (09:24)
[2024-03-06] MEDS: Bisoprolol Fumarate 5 MG Tablet 10 MG PO (09:25)
[2024-03-06] MEDS: tiZANidine HCl 2 MG Tablet 4 MG PO (09:25)
--- NOTE | 2024-03-06 10:51 | CASEMGMT ---
Social Work As per physician, pt is ready to be seen by crisis for possible psychiatric placement. SW called [facility], they have not called yet, pt is actually down in MRI. SW called crisis, message left to call SW back. SW will continue to follow, SW anticipates crisis will not see pt until MRI completed and we have results. GEOVANNI Harris
--- NOTE | 2024-03-06 11:14 | CASEMGMT ---
Social Work SW spoke w/Peg, she asked for clinical information to be faxed and Moriah will be here to see pt this afternoon. JAVY faxed clinical information to [facility] for crisis. GEOVANNI Harris
[2024-03-06 12:18] VITALS: BP 126/78; PULSE 61; RESP 18; TEMP 36.7; O2SAT 98
--- NOTE | 2024-03-06 12:37 | PN_ITS ---
Subjective Subjective Patient seen and examined. She still remains confused today. Unable to do review of systems due to her confusion. She has remained hemodynamically stable. Neurology wants to try to see if she can tolerate the MRI today. Objective Data Objective Data Vital Signs: Vital Signs Temp Pulse Resp BP Pulse Ox O2 Del Method 98.0 F 61 18 126/78 H 98 Room Air 03/06/24 12:18 03/06/24 12:18 03/06/24 12:18 03/06/24 12:18 03/06/24 12:18 03/06/24 12:18 Oxygen Delivery Method Room Air Weight: 139 lb 5.314 oz Body Mass Index (BMI) 22.4 Intake & Output: Intake and Output for Last 24 Hours 03/04/24 03/05/24 03/06/24 23:59 23:59 23:59 Intake Total 1000 / 1000 890 / 1090 600 / 600 Balance 1000 / 1000 890 / 1090 600 / 600 Lab / Micro Data 03/06/24 05:50 03/06/24 05:50 Labs: Laboratory Results - last 24 hr 03/06/24 05:50: WBC 9.3, RBC 5.18, Hgb 16.3 H, Hct 46.8, MCV 90.3, MCH 31.5, MCHC 34.8, RDW Std Deviation 40.6, RDW Coeff of Laurie 12.3, Plt Count 151, MPV 11.3, Immature Gran % (Auto) 0.300, Neut % (Auto) 67.0, Lymph % (Auto) 24.3, [place] % (Auto) 8.0, Eos % (Auto) 0.1, Baso % (Auto) 0.3, Absolute Neuts (auto) 6.2, Absolute Lymphs (auto) 2.27, Nucleated RBC % 0, Sodium 134 L, Potassium 3.3 L, Chloride 102, Carbon Dioxide 24.0, Anion Gap 8, BUN 17, Creatinine 1.61 H, Estim Creat Clear Calc 37.40, Est GFR (MDRD) Af Amer 43 L, Est GFR (MDRD) Non-Af 35 L, BUN/Creatinine Ratio 10.6, Glucose 121 H, Calcium 9.3 Physical Exam Const alert Constitutional Narrative: Pleasantly confused. Follows commands. Does not answer questions appropriately. Alert to self only. General Appearance: cooperative Orientation / Consciousness: confused HEENT normocephalic, head/scalp atraumatic, moist oral mucous membranes and oropharynx normal Eyes PERRL and EOMs intact bilaterally Neck no lymphadenopathy, supple and no JVD Lymph Lymphatic: no lymphadenopathy noted and no lymphedema noted Resp normal respiratory effort, normal air movement, no retractions, no use of accessory muscles and clear to auscultation bilaterally Cardio regular rate, regular rhythm, S1 normal heart sound, S2 normal heart sound and no murmurs GI normal to inspection, nondistended, normoactive bowel sounds, soft to palpation, non-tender and non-distended Extremity normal to inspection, normal capillary refill, no clubbing, cyanosis or edema and no calf tenderness General Extremity: no tenderness to palpation of joints or extremities Skin General Skin Exam: no breakdown Neuro CN's II-XII intact bilaterally, moves all extremities, no focal motor deficits, no sensory deficits noted and deep tendon reflexes 2+ bilaterally Sensorium / Orientation: awake and oriented to person; Negative for oriented to place or oriented to time Motor Exam: strength 5/5 throughout and general weakness Psych Psych Narrative: confused. Assessment & Plan Assessment/Plan (1) Toxic encephalopathy: (2) Hypothyroidism: (3) Use of cannabinoid edibles: PLAN: Plan #Acute encephalopathy * etiology is unclear, but is suspected to be due to cannabis toxicity. * patient take cannabis gummies. It is thought she may have taken more than usual * TSH was also 18.8, but T4 is only 1 and free T2 is slightly low at 2.1. * Urinalysis showed no evidence of infection and urine tox was positive for cannabinoids. * serum alcohol level is <3. * CT of the brain showed no acute intracranial pathology. Repeat CT of the brain also showed no evidence of acute intracranial pathology. * MRI ordered today and per neurology looks like she has a subacute infarct but official read is pending. * PT/O on board. Fall precautions. * vitamin B12 level is normal at 369 and folate levels are pending. * syphilis antibody screen negative. * neurology on board. EEG done. * Hypokalemia: Potassium is 3.3. Replace and monitor. #Fibromyalgia: stable. Gabapentin on hold. #Elevated TSH: TSH is 18. Free T4 is normal but free T3 slightly low at 1. Repeat TSH is 16.9. Started on synthroid 25mcg daily DVT prophylaxis: lovenox Charges/Coding Visit Charges Inpatient E&M: 40132 Subs Hosp L2
--- NOTE | 2024-03-06 12:43 | NURSING ---
crisis here to interview pt
--- NOTE | 2024-03-06 13:26 | CASEMGMT ---
Addendum entered by Sobia Torres 03/06/24 14:31: Social Work Pt's boyfriend Bassam Summers was in this morning to visit pt, his number is [phone]. SW called [facility], spoke w/Sangita, passed on Bassam's information for the sheet metal worker maintenance. GEOVANNI Harris Addendum entered by Sobia Torres 03/06/24 14:25: Social Work Pt is actually medically cleared. [facility] ([place], [place]) saw pt, is reaching out to family and is going to look into psych placement for pt. GEOVANNI Harris Original Note: Social Work SW spoke w/physician, plan now is for [facility] to see pt tomorrow. JAVY will let Moriah from [facility] know. GEOVANNI Harris
--- NOTE | 2024-03-06 17:58 | PN.NEURO_ITS ---
Assessment and Plan: Neuro Assessment/Plan VERNON LUGO is a 53 F with a past medical history ofmarjuana use, being evaluated by Teleneurology for encephalopathy. Exam is nonfocal marred largely by distractability but no focal findings. Her exam continues to improve. At this time still not clear as to timeline or prodromal events to pts AMS however she does appear to have possible stroke on MRI Brain (read as normal but on my eval appears slightly abnormal like there are subacute strokes present that could date to 1 week ago). Unclear if these strokes could have caused her AMS. Pt's AMs could have been caused by poor sleep however unclear what would have caused her poor sleep. Stroke. Etiology unclear - Anti-platelet medication: Aspirin 81 mg daily - Occupational/ Physical therapy consults - DVT prophylaxis with SCDs and heparin SQ - Please obtain lipid panel and A1C - Obtain CTA head.neck - Obtain TTE - cardiac telemetry while in the hospital - Vascular risk factor modification. The following are the recommended guidelines: LDL Goal < 70 Smoking Cessation Diabetes Management senior care blood pressure control should achieve <130/80 mmHg. BP management should aim to achieve longterm contorl in a reasonable amount of time, taking into consideration the individual patient's requirements and characteristics. Weight Management: Goal for BMI is 18.5 -24.9 kg/m2 Alcohol: No more than 2 drinks/day for men or 1 drink/day for non- women - Promote lifestyle modification: weight control, physical activity, moderation of alcohol intake, moderate sodium intake. - if signficant other comes to visit, please message Neurology group on [facility] - continue treating hypothyroidism I personally attended this patient and spent a total time of 60 minutes evaluating this patient including clinical assessment, review of chart, medical history imaging, and determining appropriate treatment and workup. Subject: Neurology Subjective VERNON LUGO is a 53 year old F, who we are seeing in consultation today for advice on the management of encephalopathy and related patient care. Pt states she thinks she feels back to herself. She states she thinks her SO went for a fishing trip and was gone while she was confused and no one was with her. I spoke with her daughter who stated she felt that all this started around Friday or Friday - originally they were called around Friday but her mom's SO but it seems after talking with him the daughters now think that the pt started being altered earlier over last weekend. She knows that recently that the SO encouraged the pt to take some CBD gummies to sleep bc she had not slept for 3 days. Not sleeping for 3 days is atypical for her and while she has insomnia she has never gone that long not sleeping before. Attempted 3x to contac ther SO without luck NIHSS NIHSS 1a. Level of Consciousness: Alert; keenly responsive 1b. LOC Questions: Answers one question correctly. 1c. LOC Commands: Performs both tasks correctly. 2. Best Gaze: Normal 3. Visual: No visual loss 4. Facial Palsy: Normal symmetrical movements 5a. Left Arm: No drift; arm holds 90 (or 45) degrees for full 10 seconds 5b. Right Arm: No drift; arm holds 90 (or 45) degrees for full 10 seconds 6a. Left Leg: No drift; leg holds 30-degree position for full 5 seconds 6b. Right Leg: No drift; leg holds 30-degree position for full 5 seconds 7. Limb Ataxia: Absent 8. Sensory: Normal; no sensory loss 9. Best Language: No aphasia; normal 10. Dysarthria: Normal 11. Extinction and Inattention: No abnormality Total: 1 Objective Data Objective Data Vital Signs: Vital Signs Temp Pulse Resp BP Pulse Ox O2 Del Method 98.0 F 61 18 126/78 H 98 Room Air 03/06/24 12:18 03/06/24 12:18 03/06/24 12:18 03/06/24 12:18 03/06/24 12:18 03/06/24 12:18 Oxygen Delivery Method Room Air Weight: 63.2 kg Body Mass Index (BMI) 22.4 Intake & Output: Intake and Output for Last 24 Hours 03/04/24 03/05/24 03/06/24 23:59 23:59 23:59 Intake Total 1000 / 1000 890 / 1090 600 / 600 Balance 1000 / 1000 890 / 1090 600 / 600 Lab / Micro Data 03/06/24 05:50 03/06/24 05:50 Labs: Laboratory Results - last 24 hr 03/06/24 05:50: WBC 9.3, RBC 5.18, Hgb 16.3 H, Hct 46.8, MCV 90.3, MCH 31.5, MCHC 34.8, RDW Std Deviation 40.6, RDW Coeff of Laurie 12.3, Plt Count 151, MPV 11.3, Immature Gran % (Auto) 0.300, Neut % (Auto) 67.0, Lymph % (Auto) 24.3, [place] % (Auto) 8.0, Eos % (Auto) 0.1, Baso % (Auto) 0.3, Absolute Neuts (auto) 6.2, Absolute Lymphs (auto) 2.27, Nucleated RBC % 0, Sodium 134 L, Potassium 3.3 L, Chloride 102, Carbon Dioxide 24.0, Anion Gap 8, BUN 17, Creatinine 1.61 H, Estim Creat Clear Calc 37.40, Est GFR (MDRD) Af Amer 43 L, Est GFR (MDRD) Non-Af 35 L, BUN/Creatinine Ratio 10.6, Glucose 121 H, Calcium 9.3 Radiography Diagnostic Testing: Radiology Impression Brain MRI 03/06/24 08:48 IMPRESSION: 1. Involutional changes of the brain, as described above. 2. No demonstrated acute infarct or intracranial hemorrhage. 3. No visualized hydrocephalus or midline shift. No signal abnormality to demonstrate anoxic or hypoxic ischemic encephalopathy. Electronically Signed: Leandro Coates MD at 13:03 EDT , On My read, there appear to be areas of diffusion restriction with no ADC correlate and no clear FLAIR abnormality concerning for subacute stroke: - L cerebellum - L occipital lobe. There are also areas of old damage likely stroke with atrophy and changes Physical Exam Narrative NEURO: - Mental Status: The patient was alert and oriented to time, place, and person. - Language: speech is clear. Naming, repetition, fluency, and comprehension intact. - Cranial Nerves: EOMI, visual spear full, no facial asymmetry, facial sensation intact, - Motor: normal bulk, tone, and strength throughout. No pronator drift or satelliting. Upper and lower extremities equal bilaterally.
[2024-03-06 18:10] VITALS: BP 142/83; PULSE 63; RESP 16; TEMP 36.5; O2SAT 99
[2024-03-06 21:00] VITALS: BP 142/79; PULSE 60; RESP 16; TEMP 37.2; O2SAT 98
[2024-03-07] VITALS (7 sets, daily range): BP systolic 125–160; BP diastolic 69–100; PULSE 66–88; RESP 16–18; TEMP 36.4–37.2; O2SAT 96–100; BMI 22.4
[2024-03-07] MEDS: Levothyroxine 25 MCG TABLET PO (05:37)
[2024-03-07 06:52] LABS: Absolute Lymphocyte Count 1.67 X10^3/uL (0.83-4.51); Absolute Neutrophil Count 5.4 X10^3/uL (2.0-7.7); Basophil# 0.02 X10^3/uL; Basophil% 0.3 % (0-1); Hematocrit 47.2 % (37-47); Hemoglobin 16.3 g/dL (12.0-15.0); Lymphocyte # 1.67 X10^3/ul (0.83-4.51); Lymphocyte % 21.4 % (19-41); Mean Corp Hgb Conc 34.5 g/dL (32-36); Mean Corpuscular Hgb 31.3 pg (27.0-32.0); Mean Corpuscular Volume 90.6 fL (81-99); Mean Platelet Vol. 10.9 fl (6.2-12.0); Monocyte# 0.67 X10^3/uL; Monocyte% 8.6 % (0-10); NRBC Flagged by Analyzer 0 % (0-5); Neutrophil # 5.41 X10^3/uL (2.7-7.7); Neutrophil % 69.2 % (47-70); Platelet Count 143 K/mm3 (150-450); RBC Distribution Width CV 12.3 % (11.6-14.6); RBC Distribution Width SD 40.5 fl (35.1-43.9); Red Blood Count 5.21 M/mm3 (4.2-5.4); White Blood Count 7.8 K/mm3 (4.4-11.0)
[2024-03-07 07:12] LABS: Anion Gap 5 (5-15); BUN 14 mg/dL (7-18); BUN/Creat Ratio 9.2 RATIO (10-20); Calcium,Total 9.5 mg/dL (8.5-10.1); Chloride 105 mmol/L (98-107); Creatinine, Serum 1.53 mg/dL (0.55-1.02); EST Glomerular Filtration Rate 38 mL/min (>60); Est Glom Filt Rate - Afr Amer 45 mL/min (>60); Estimated Creatinine Clearance 39.35 ml/min; Glucose 122 mg/dL (74-106); Potassium 3.7 mmol/L (3.5-5.1); Sodium Level 135 mmol/L (136-145)
--- NOTE | 2024-03-07 08:12 | MRI_ITS ---
EXAM: MR ANGIOGRAPHY HEAD WITHOUT INTRAVENOUS CONTRAST CLINICAL INDICATION: stroke TECHNIQUE: Routine [place] of Vazquez/brain 3D time of flight MR angiogram protocol was performed without intravenous contrast. COMPARISON: MRI brain, 03/06/2024 and MRA neck, 03/07/2024. FINDINGS: RIGHT INTERNAL CAROTID ARTERY: No significant findings. No significant stenosis at the intracranial/visualized segments. No aneurysm. RIGHT ANTERIOR CEREBRAL ARTERY: No significant abnormality. No occlusion or significant stenosis. Anterior communicating artery is present. No aneurysm. RIGHT MIDDLE CEREBRAL ARTERY: No significant abnormality. No occlusion or significant stenosis. No aneurysm. RIGHT POSTERIOR CEREBRAL ARTERY: No significant abnormality. No occlusion or significant stenosis. No aneurysm. RIGHT VERTEBRAL ARTERY: Normal as visualized. No significant stenosis at the intradural/visualized segments. No aneurysm. LEFT INTERNAL CAROTID ARTERY: No significant findings. No significant stenosis at the intracranial/visualized segments. No aneurysm. LEFT ANTERIOR CEREBRAL ARTERY: No significant abnormality. No occlusion or significant stenosis. Anterior communicating artery is present. No aneurysm. LEFT MIDDLE CEREBRAL ARTERY: No significant abnormality. No occlusion or significant stenosis. No aneurysm. LEFT POSTERIOR CEREBRAL ARTERY: No significant abnormality. No occlusion or significant stenosis. No aneurysm. LEFT VERTEBRAL ARTERY: Normal as visualized. No significant stenosis at the intradural/visualized segments. No aneurysm. BASILAR ARTERY: No significant abnormality. No significant stenosis. No aneurysm. OTHER VASCULATURE: No vascular malformation. 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 OTHER FINDINGS: Sinonasal mucosal thickening. MRI/MRA Head ONLY without Contrast IMPRESSION: No acute findings in the arteries of the head/brain. Electronically Signed: Sulaiman Drummond DO at 12:54 EDT ,
--- NOTE | 2024-03-07 08:12 | MRI_ITS ---
EXAM: MR ANGIOGRAPHY NECK WITHOUT INTRAVENOUS CONTRAST CLINICAL INDICATION: stroke TECHNIQUE: Routine carotid MR angiogram protocol was performed without intravenous contrast. 3D reconstructions were reviewed. NASCET criteria using the distal ICAs for comparison were used for evaluation of stenoses. COMPARISON: MRI brain, 03/06/2024 MRA head on the same date. FINDINGS: RIGHT COMMON CAROTID ARTERY: No significant abnormality. No occlusion or significant stenosis. No dissection. RIGHT INTERNAL CAROTID ARTERY: Mild luminal irregularity of the proximal right internal carotid artery likely secondary to atherosclerosis or technique with less than 50% stenosis by NASCET criteria. No dissection. RIGHT EXTERNAL CAROTID ARTERY: No significant abnormality. No occlusion. RIGHT VERTEBRAL ARTERY: No significant abnormality. No occlusion or significant stenosis. No dissection. LEFT COMMON CAROTID ARTERY: No significant abnormality. No occlusion or significant stenosis. No dissection. LEFT INTERNAL CAROTID ARTERY: No significant abnormality. Extracranial segment is patent with no occlusion or significant stenosis. No dissection. LEFT EXTERNAL CAROTID ARTERY: No significant abnormality. No occlusion. LEFT VERTEBRAL ARTERY: No significant abnormality. No occlusion or significant stenosis. No dissection. CAROTID STENOSIS REFERENCE USING NASCET CRITERIA: % ICA stenosis = (1 - narrowest ICA diameter/diameter of distal cervical ICA) x 100. Mild - <50% stenosis. Moderate - 50-69% stenosis. Severe - 70-94% stenosis. Near occlusion - 95-99% stenosis. Occluded - 100% stenosis. MRI/MRA Neck without Contrast IMPRESSION: Mild luminal irregularity of the proximal right internal carotid artery likely secondary to atherosclerosis or technique with less than 50% stenosis by NASCET criteria. Otherwise, no significant arterial pathology in the neck. Electronically Signed: Sulaiman Drummond DO at 12:52 EDT ,
--- NOTE | 2024-03-07 08:12 | ECHOD_ITS ---
Reason For Study: TIA/CVA Procedure This was a 2D Doppler, Color Flow transthoracic echocardiogram. Exam performed portable in patient room. Left Ventricle Normal size and thickness. Left ventricular systolic function is normal. The left ventricular ejection fraction is 60 %. No regional wall motion abnormalities noted. Right Ventricle Normal RV size. Normal systolic function. Atria Normal left atrium. Normal right atrium. Bubble contrast study negative for right to left interatrial shunt. Mitral Valve Normal mitral valve. Mild (1+) eccentric mitral valve insufficiency. Tricuspid Valve Normal tricuspid valve. Mild (1+) tricuspid valve insufficiency. Pulmonary artery systolic pressure is 35 mmHg. Aortic Valve Trisinus/trileaflet aortic valve. Pulmonic Valve Normal pulmonic valve. Great Vessels Normal aortic root. The pulmonary artery is normal size. Inferior vena cava collapse with respiration. Pericardium/Pleural No pericardial effusion. Medication Performed a rapid injection of agitated mix of 9 cc saline and 1cc air to assess for atrial septal defect. MMode/2D Measurements & Calculations LVIDd: 4.1 cm IVSd: 1.1 cm Ao root diam: 2.6 cm LVIDs: 2.8 cm LVPWd: 1.1 cm RVDd: 3.2 cm FS: 30.2 % LAV(MOD-bp): 24.3 ml LVAd ap4: 21.4 cm2 SV(MOD-sp4): 34.5 ml LAV(MOD-bp) Indexed: 14.2 ml/m2 LVLd ap4: 6.4 cm LAV(MOD-sp2): 16.3 ml EDV(MOD-sp4): 58.1 ml LAV(MOD-sp4): 24.1 ml EDV(sp4-el): 60.3 ml LVAs ap4: 11.9 cm2 LVLs ap4: 4.9 cm ESV(MOD-sp4): 23.6 ml ESV(sp4-el): 24.6 ml EF(MOD-sp4): 59.4 % EF(sp4-el): 59.3 % SV(sp4-el): 35.8 ml LA A4 area: 12.7 cm2 LA dimension(2D): 2.5 cm RA A4 area: 8.7 cm2 Time Measurements MV dec time: 0.19 sec Doppler Measurements & Calculations MV E max parag: 70.8 cm/sec Lat Peak E' Parag: 8.4 cm/sec Med Peak E' Parag: 6.3 cm/sec MV A max parag: 70.8 cm/sec E/E' lat: 8.4 E/E' med: 11.2 MV E/A: 1.0 Ao V2 max: 141.8 cm/sec LV V1 max: 91.3 cm/sec PA V2 max: 95.7 cm/sec Ao max P.0 mmHg LV V1 max P.3 mmHg Ao V2 mean: 99.2 cm/sec Ao mean P.3 mmHg Ao V2 VTI: 31.7 cm TR max parag: 282.8 cm/sec TR max P.0 mmHg ECHO/Echo Complete Interpretation Summary The left ventricular ejection fraction is 60 %. Normal size and thickness. Left ventricular systolic function is normal. Mild (1+) eccentric mitral valve insufficiency. Bubble contrast study negative for right to left interatrial shunt. Ordering Physician: Sherman Best Referring Physician: Shawn Aguero Performed By: Kesha Davis, FERMIN, RVT
--- NOTE | 2024-03-07 08:16 | PCM.PN.HOSP ---
Reason for Visit Reason for Visit: Diagnoses Hypothyroidism, unspecified (03/04/24) Cannabis use, unspecified, uncomplicated (03/04/24) Unspecified toxic encephalopathy (03/04/24) Objective Data Objective Data Vital Signs: Vital Signs Temp Pulse Resp BP Pulse Ox O2 Del Method 98.9 F 88 16 148/77 H 99 Room Air 03/07/24 04:16 03/07/24 04:16 03/07/24 04:16 03/07/24 04:16 03/07/24 04:16 03/07/24 04:16 Oxygen Delivery Method Room Air Weight: 139 lb 5.314 oz Body Mass Index (BMI) 22.4 Intake & Output: Intake and Output for Last 24 Hours 03/05/24 03/06/24 03/07/24 23:59 23:59 23:59 Intake Total 890 / 1090 800 / 800 Balance 890 / 1090 800 / 800 Lab / Micro Data 03/07/24 06:42 03/07/24 06:42 Labs: Laboratory Results - last 24 hr 03/07/24 06:42: WBC 7.8, RBC 5.21, Hgb 16.3 H, Hct 47.2 H, MCV 90.6, MCH 31.3, MCHC 34.5, RDW Std Deviation 40.5, RDW Coeff of Laurie 12.3, Plt Count 143 L, MPV 10.9, Immature Gran % (Auto) 0.500, Neut % (Auto) 69.2, Lymph % (Auto) 21.4, [place] % (Auto) 8.6, Eos % (Auto) 0.0, Baso % (Auto) 0.3, Absolute Neuts (auto) 5.4, Absolute Lymphs (auto) 1.67, Nucleated RBC % 0, Sodium 135 L, Potassium 3.7, Chloride 105, Carbon Dioxide 25.0, Anion Gap 5, BUN 14, Creatinine 1.53 H, Estim Creat Clear Calc 39.35, Est GFR (MDRD) Af Amer 45 L, Est GFR (MDRD) Non-Af 38 L, BUN/Creatinine Ratio 9.2 L, Glucose 122 H, Calcium 9.5, TSH 8.30 H Radiography Diagnostic Testing: Radiology Impression Brain MRI 03/06/24 08:48 IMPRESSION: 1. Involutional changes of the brain, as described above. 2. No demonstrated acute infarct or intracranial hemorrhage. 3. No visualized hydrocephalus or midline shift. No signal abnormality to demonstrate anoxic or hypoxic ischemic encephalopathy. Electronically Signed: Leandro Coates MD at 13:03 EDT Reading Location ID and State: [facility] / [place] , Service support , Physical Exam Narrative Seen and examined. Patient's looks happy and easy distractibility. Tells her full name birthday and age correctly. Finished her breakfast completely. Physical exam General: Alert, Oriented x3, Cooperative HEENT: Atraumatic, PERRLA, EOMI, Normocephalic Oral: Oral mucosa moist. No Gingival or Mucosal Lesions/ Ulcerations Neck: Supple, No JVD, Negative Carotid Bruits Chest wall/Lungs: Air entry diminished in bilateral lung bases. No crepitation/rhonchi Cardiovascular: Regular rate, Regular Rhythm, Normal S1, Normal S2, No M/G/R Abdomen: Bowel Sounds Present, Soft, Non Tender, Non-Distended : No dysuria. No renal angle tenderness. No suprapubic tenderness. Extremities: No edema, Capillary Refill Less than 3 Seconds Skin: No rashes, No breakdown Musculoskeletal: No Tenderness to Palpation of Joints or Extremities Neurological: Right angle of mouth is pulled but no clear facial asymmetry.. Muscle strength 5/5 at major joints. DTR 2+/4. No acute focal neurological deficit. Psych/Mental Status: Happy. Assessment & Plan Assessment/Plan (1) Toxic encephalopathy: (2) Hypothyroidism: (3) Use of cannabinoid edibles: PLAN: Plan #Acute encephalopathy etiology is unclear, but is suspected to be due to cannabis toxicity. patient take cannabis gummies. It is thought she may have taken more than usual TSH was also 18.8, but T4 is only 1 and free T2 is slightly low at 2.1. Urinalysis showed no evidence of infection and urine tox was positive for cannabinoids. serum alcohol level is <3. CT of the brain showed no acute intracranial pathology. Repeat CT of the brain also showed no evidence of acute intracranial pathology. MRI ordered today and per neurology looks like she has a subacute infarct but official read is pending. PT/O on board. Fall precautions. vitamin B12 level is normal at 369 and folate levels are pending. syphilis antibody screen negative. 03/07: Neurologist note reviewed. As per her MRI read possible stroke, MRI appears slightly abnormal like subacute stroke. Patent 1 week ago. She ordered stroke workup including lipid panel A1c DVT prophylaxis, aspirin 81 mg daily, CTA head and neck and TTE. Cardiac telemetry. CT angiogram high risk because of increased creatinine therefore MRA head and neck ordered. Patient is being transferred to PCU. Routine EEG indicating a mild degree of encephalopathy. No epileptiform discharges or seizures were noted. Hypokalemia: Potassium is 3.3. Replace and monitor. 03/07 repeat potassium 3.7. #Fibromyalgia: stable. Gabapentin on hold. #Elevated TSH: TSH is 18. Free T4 is normal but free T3 slightly low at 1. Repeat TSH is 16.9. Started on synthroid 25mcg daily DVT prophylaxis: lovenox Charges/Coding Visit Charges Inpatient E&M: 12094 Subs Hosp L2
[2024-03-07 08:42] LABS: Hemoglobin A1c 5.5 % (3.8-5.6)
[2024-03-07 08:55] LABS: Cholesterol 142 mg/dL (200); High Density Lipoprotein 29 mg/dL; Triglycerides 111 mg/dL; Very Low Density Lipoprotein 22 mg/dL (5-40)
[2024-03-07] MEDS: Aspirin 81 MG TAB.CHEW PO (09:10)
--- NOTE | 2024-03-07 09:10 | PCA ---
Recent TSH results faxed to [facility] [employer] fax number [phone]
[2024-03-07] MEDS: hydroCHLOROthiazide 6.25mg TAB 6.25 MG PO (09:15)
[2024-03-07] MEDS: tiZANidine HCl 2 MG Tablet 4 MG PO (09:15)
[2024-03-07] MEDS: Pantoprazole Sodium 20 MG Tablet PO (09:16)
[2024-03-07] MEDS: Bisoprolol Fumarate 5 MG Tablet 10 MG PO (09:16)
[2024-03-07] MEDS: Venlafaxine XR 150 MG Capsule PO (09:16)
--- NOTE | 2024-03-07 10:51 | PCA ---
Counseling Center called with acceptance for patient going to psych facility but due to patient care change pt will not be transferred, Counseling center aware and will let [facility] know.
[2024-03-07] MEDS: 0.9% Saline Lock 10 ML Syringe IV ×2 (11:09→13:45)
[2024-03-07] MEDS: Haloperidol Lactate 5 MG/ML Vial 2 MG IM (11:10)
[2024-03-07] MEDS: KCL 20MEQ in 0.9% NS 20 MEQ/1,000 ML IV.SOLN. 100 MEQ IV (13:44)
--- NOTE | 2024-03-07 14:22 | NURSING ---
report called to [facility]
[2024-03-07 17:39] LABS: Bedside Glucose 148 mg/dL (74-106)
[2024-03-07] MEDS: Atorvastatin Calcium 80 MG Tablet PO (21:33)
[2024-03-08] VITALS (7 sets, daily range): BP systolic 132–153; BP diastolic 75–118; PULSE 71–86; RESP 16–18; TEMP 36.2–36.8; O2SAT 96–100; BMI 22.4
[2024-03-08 00:24] LABS: Bedside Glucose 102 mg/dL (74-106)
[2024-03-08] MEDS: KCL 20MEQ in 0.9% NS 20 MEQ/1,000 ML IV.SOLN. 100 MEQ IV (01:14)
[2024-03-08 06:01] LABS: Absolute Lymphocyte Count 1.82 X10^3/uL (0.83-4.51); Absolute Neutrophil Count 4.8 X10^3/uL (2.0-7.7); Basophil# 0.01 X10^3/uL; Basophil% 0.1 % (0-1); Eosinophil# 0.01 X10^3/uL; Eosinophils% 0.1 % (0-5); Hematocrit 43.3 % (37-47); Hemoglobin 14.7 g/dL (12.0-15.0); Lymphocyte # 1.82 X10^3/ul (0.83-4.51); Lymphocyte % 24.6 % (19-41); Mean Corp Hgb Conc 33.9 g/dL (32-36); Mean Corpuscular Hgb 31.7 pg (27.0-32.0); Mean Corpuscular Volume 93.5 fL (81-99); Mean Platelet Vol. 11.5 fl (6.2-12.0); Monocyte# 0.68 X10^3/uL; Monocyte% 9.2 % (0-10); NRBC Flagged by Analyzer 0 % (0-5); Neutrophil # 4.84 X10^3/uL (2.7-7.7); Neutrophil % 65.6 % (47-70); Platelet Count 141 K/mm3 (150-450); RBC Distribution Width CV 12.5 % (11.6-14.6); RBC Distribution Width SD 42.9 fl (35.1-43.9); Red Blood Count 4.63 M/mm3 (4.2-5.4); White Blood Count 7.4 K/mm3 (4.4-11.0)
[2024-03-08 06:34] LABS: Anion Gap 6 (5-15); BUN 16 mg/dL (7-18); BUN/Creat Ratio 11.5 RATIO (10-20); Chloride 103 mmol/L (98-107); Creatinine, Serum 1.39 mg/dL (0.55-1.02); EST Glomerular Filtration Rate 42 mL/min (>60); Est Glom Filt Rate - Afr Amer 51 mL/min (>60); Estimated Creatinine Clearance 43.31 ml/min; Glucose 101 mg/dL (74-106); Potassium 3.3 mmol/L (3.5-5.1); Sodium Level 134 mmol/L (136-145); Thyroid Stim Hormone (TSH) 7.21 uIU/mL (0.358-3.74)
[2024-03-08] MEDS: Levothyroxine 25 MCG TABLET PO (06:56)
[2024-03-08 07:14] LABS: Bedside Glucose 106 mg/dL (74-106)
--- NOTE | 2024-03-08 08:52 | PCM.PN.HOSP ---
Reason for Visit Reason for Visit: Diagnoses Hypothyroidism, unspecified (03/04/24) Cannabis use, unspecified, uncomplicated (03/04/24) Unspecified toxic encephalopathy (03/04/24) Objective Data Objective Data Vital Signs: Vital Signs Temp Pulse Resp BP Pulse Ox O2 Del Method 98.2 F 72 18 152/91 H 98 Room Air 03/08/24 06:15 03/08/24 06:15 03/08/24 06:15 03/08/24 06:15 03/08/24 06:15 03/08/24 07:28 Oxygen Delivery Method Room Air Weight: 139 lb 5.314 oz Body Mass Index (BMI) 22.4 Intake & Output: Intake and Output for Last 24 Hours 03/06/24 03/07/24 03/08/24 23:59 23:59 23:59 Intake Total 800 / 800 1590 / 1830 600 / 600 Balance 800 / 800 1590 / 1830 600 / 600 Lab / Micro Data 03/08/24 05:19 03/08/24 05:19 Labs: Laboratory Results - last 24 hr 03/07/24 06:42: Triglycerides 111, Cholesterol 142, LDL Cholesterol 91, VLDL Cholesterol 22, HDL Cholesterol 29 L 03/07/24 17:21: POC Glucose 148 H 03/08/24 00:03: POC Glucose 102 03/08/24 05:19: WBC 7.4, RBC 4.63, Hgb 14.7, Hct 43.3, MCV 93.5, MCH 31.7, MCHC 33.9, RDW Std Deviation 42.9, RDW Coeff of Laurie 12.5, Plt Count 141 L, MPV 11.5, Immature Gran % (Auto) 0.400, Neut % (Auto) 65.6, Lymph % (Auto) 24.6, Smyth % (Auto) 9.2, Eos % (Auto) 0.1, Baso % (Auto) 0.1, Absolute Neuts (auto) 4.8, Absolute Lymphs (auto) 1.82, Nucleated RBC % 0, Sodium 134 L, Potassium 3.3 L, Chloride 103, Carbon Dioxide 25.0, Anion Gap 6, BUN 16, Creatinine 1.39 H, Estim Creat Clear Calc 43.31, Est GFR (MDRD) Af Amer 51 L, Est GFR (MDRD) Non-Af 42 L, BUN/Creatinine Ratio 11.5, Glucose 101, Calcium 9.0, TSH 7.21 H 03/08/24 06:46: POC Glucose 106 Radiography Diagnostic Testing: Radiology Impression Head MRA 03/07/24 08:12 IMPRESSION: No acute findings in the arteries of the head/brain. Electronically Signed: Sulaiman Drummond DO at 12:54 EDT , Neck MRA 03/07/24 08:12 IMPRESSION: Mild luminal irregularity of the proximal right internal carotid artery likely secondary to atherosclerosis or technique with less than 50% stenosis by NASCET criteria. Otherwise, no significant arterial pathology in the neck. Electronically Signed: Sulaiman Drummond DO at 12:52 EDT , Physical Exam Narrative Seen and examined. Patient is agitated, confused and incomprehensible during the night. As per last psych facility was called and updated and patient not medically stable for assessment. Earlier, yesterday patient was accepted as inpatient Psych facility. Full workup for stroke therefore not discharged yesterday Physical exam General: Alert, awake, intermittent confusion distraction and agitation HEENT: Atraumatic, PERRLA, EOMI, Normocephalic Oral: Oral mucosa moist. No Gingival or Mucosal Lesions/ Ulcerations Neck: Supple, No JVD, Negative Carotid Bruits Chest wall/Lungs: Air entry diminished in bilateral lung bases. No crepitation/rhonchi Cardiovascular: Regular rate, Regular Rhythm, Normal S1, Normal S2, No M/G/R Abdomen: Bowel Sounds Present, Soft, Non Tender, Non-Distended : No dysuria. No renal angle tenderness. No suprapubic tenderness. Extremities: No edema, Capillary Refill Less than 3 Seconds Skin: No rashes, No breakdown Musculoskeletal: No Tenderness to Palpation of Joints or Extremities Neurological: No clear facial asymmetry.. Muscle strength 5/5 at major joints. DTR 2+/4. No acute focal neurological deficit. Psych/Mental Status: Confused at times agitated Assessment & Plan Assessment/Plan (1) Toxic encephalopathy: (2) Hypothyroidism: (3) Use of cannabinoid edibles: PLAN: Plan #Acute encephalopathy with history of suspected anxiety and depression on venlafaxine at home: etiology is unclear, but is suspected to be due to cannabis toxicity or possible subacute stroke. patient take cannabis gummies. It is thought she may have taken more than usual TSH was also 18.8, but T4 is only 1 and free T2 is slightly low at 2.1. Urinalysis showed no evidence of infection and urine tox was positive for cannabinoids. serum alcohol level is <3. CT of the brain showed no acute intracranial pathology. Repeat CT of the brain also showed no evidence of acute intracranial pathology. PT/O on board. Fall precautions. vitamin B12 level is normal at 369 and folate levels are pending. syphilis antibody screen negative. 03/07: Neurologist note reviewed. As per her MRI read possible stroke, MRI appears slightly abnormal like subacute stroke. Patent 1 week ago. She ordered stroke workup including lipid panel A1c DVT prophylaxis, aspirin 81 mg daily, CTA head and neck and TTE. Cardiac telemetry. CT angiogram high risk because of increased creatinine therefore MRA head and neck ordered. Patient is being transferred to PCU. Routine EEG indicating a mild degree of encephalopathy. No epileptiform discharges or seizures were noted. 03/08: As per nursing staff note, she is agitated, restless and anxious to leave. She said that she is not getting her home medications. I tried to convince that MRI is abnormal and needs full stroke workup as per neurologist recommendation but she does not comprehend completely. I feel like patient would benefit from treatment in the hospital and has background history of anxiety and depression as she is on venlafaxine therefore the behavior of agitation she is imminent substantial risk to herself or others therefore pink slipped. Patient was started on haloperidol low-dose along with promethazine as needed for agitation Hypokalemia: Potassium is 3.3. Replace and monitor. 03/07 repeat potassium 3.7. 03/08 mild hypokalemia: Potassium 30 replacement #Fibromyalgia: stable. Gabapentin on hold. #Elevated TSH: TSH is 18. Free T4 is normal but free T3 slightly low at 1. Repeat TSH is 16.9. Started on synthroid 25mcg daily DVT prophylaxis: lovenox Charges/Coding Addendum Addendum: Total time of the visit including total time spent in counseling or coordination of care, (more than 50% of the total time, spent in obtaining medical information from nurses and other ancillary care providers,explaining to the patient about labs, imaging, diagnosis and management of active complex medical conditions) , review of labs and imaging is 40 minutes. I also called patient's significant other Bassam Summers phone #[phone] but did not pickle cutter the phone. No voicemail set up to leave the voicemail Visit Charges Inpatient E&M: 56264 Subs Hosp L3
[2024-03-08] MEDS: Haloperidol Lactate 5 MG/ML Vial 2 MG IM (09:07)
[2024-03-08] MEDS: Bisoprolol Fumarate 5 MG Tablet 10 MG PO (09:29)
[2024-03-08] MEDS: Venlafaxine XR 150 MG Capsule PO (09:30)
[2024-03-08] MEDS: Aspirin 81 MG TAB.CHEW PO (09:30)
[2024-03-08] MEDS: Potassium Chloride Oral Tablet 20 MEQ 40 MEQ PO (09:30)
[2024-03-08] MEDS: Loratadine 10 MG Tablet PO (09:30)
[2024-03-08] MEDS: Pantoprazole Sodium 20 MG Tablet PO (09:30)
[2024-03-08] MEDS: hydroCHLOROthiazide 6.25mg TAB 6.25 MG PO (09:30)
[2024-03-08] MEDS: tiZANidine HCl 2 MG Tablet 4 MG PO (09:31)
[2024-03-08] MEDS: proMETHazine 25 MG/ML Syringe 12.5 MG IM (10:13)
[2024-03-08] MEDS: 0.9% Saline Lock 10 ML Syringe IV (10:14)
[2024-03-08] MEDS: QUEtiapine 25 MG Tablet 50 MG PO ×2 (11:34→21:47)
[2024-03-08] MEDS: LORazepam 1 MG Tablet PO (17:25)
[2024-03-08] MEDS: Atorvastatin Calcium 80 MG Tablet PO (21:46)
[2024-03-09] MEDS: LORazepam 1 MG Tablet PO (01:02)
[2024-03-09 02:00] VITALS: BP 133/96; PULSE 96; RESP 16; TEMP 36.1; O2SAT 97
[2024-03-09] MEDS: Levothyroxine 25 MCG TABLET PO (05:53)
[2024-03-09 06:00] VITALS: BP 115/99; PULSE 77; RESP 18; TEMP 36.1; O2SAT 100
[2024-03-09 07:03] LABS: Absolute Lymphocyte Count 1.84 X10^3/uL (0.83-4.51); Absolute Neutrophil Count 3.9 X10^3/uL (2.0-7.7); Basophil# 0.01 X10^3/uL; Basophil% 0.2 % (0-1); Hematocrit 41.4 % (37-47); Hemoglobin 14.1 g/dL (12.0-15.0); Lymphocyte # 1.84 X10^3/ul (0.83-4.51); Lymphocyte % 29.2 % (19-41); Mean Corp Hgb Conc 34.1 g/dL (32-36); Mean Corpuscular Hgb 31.3 pg (27.0-32.0); Mean Corpuscular Volume 91.8 fL (81-99); Mean Platelet Vol. 11.5 fl (6.2-12.0); Monocyte# 0.59 X10^3/uL; Monocyte% 9.4 % (0-10); NRBC Flagged by Analyzer 0 % (0-5); Neutrophil # 3.85 X10^3/uL (2.7-7.7); Neutrophil % 60.9 % (47-70); Platelet Count 150 K/mm3 (150-450); RBC Distribution Width CV 12.6 % (11.6-14.6); RBC Distribution Width SD 42.6 fl (35.1-43.9); Red Blood Count 4.51 M/mm3 (4.2-5.4); White Blood Count 6.3 K/mm3 (4.4-11.0)
[2024-03-09 07:31] LABS: Anion Gap 6 (5-15); BUN 15 mg/dL (7-18); BUN/Creat Ratio 9.9 RATIO (10-20); Calcium,Total 9.1 mg/dL (8.5-10.1); Chloride 110 mmol/L (98-107); Creatinine, Serum 1.51 mg/dL (0.55-1.02); EST Glomerular Filtration Rate 38 mL/min (>60); Est Glom Filt Rate - Afr Amer 46 mL/min (>60); Estimated Creatinine Clearance 39.87 ml/min; Glucose 97 mg/dL (74-106); Potassium 3.9 mmol/L (3.5-5.1); Sodium Level 139 mmol/L (136-145)
[2024-03-09] MEDS: Aspirin 81 MG TAB.CHEW PO (09:20)
[2024-03-09] MEDS: Loratadine 10 MG Tablet PO (09:21)
[2024-03-09] MEDS: Venlafaxine XR 150 MG Capsule PO (09:21)
[2024-03-09] MEDS: Pantoprazole Sodium 20 MG Tablet PO (09:21)
[2024-03-09] MEDS: QUEtiapine 25 MG Tablet 50 MG PO (09:21)
[2024-03-09] MEDS: Potassium Chloride Oral Tablet 20 MEQ 40 MEQ PO (09:21)
[2024-03-09] MEDS: hydroCHLOROthiazide 6.25mg TAB 6.25 MG PO (09:22)
[2024-03-09] MEDS: tiZANidine HCl 2 MG Tablet 4 MG PO (09:22)
[2024-03-09] MEDS: Bisoprolol Fumarate 5 MG Tablet 10 MG PO (09:28)
[2024-03-09 09:31] VITALS: BP 152/89; PULSE 82; RESP 18; TEMP 36.5; O2SAT 99
[2024-03-09 10:03] VITALS: O2SAT 97
--- NOTE | 2024-03-09 11:54 | CASEMGMT ---
Physician stated patient is medically ready for crisis. JAVY called crisis and spoke with Johnna letting her know patient is medically cleared. Johnna asked JAVY to fax updates. JAVY faxed updates to crisis. JAVY updated professor of industrial technology and RN. Shelby Sterling TOOL AND FIXTURE REPAIRER MATEUSZ
--- NOTE | 2024-03-09 11:56 | NURSING ---
Carrillo pulled from pt room at this time.
--- NOTE | 2024-03-09 13:50 | CASEMGMT ---
JAVY received a phone call from Moriah at [facility]. She spoke with patient's daughter for collateral information which was helpful. Moriah said she needs a note from physician stating patient is medically cleared for psych placement. Moriah also said she will be in to see patient. Moriah also expressed concern with patient's significant other maybe not taking her back which would make discharge from psych unit difficult. JAVY notified physician. Shelby Sterling SPECIAL DUTY NURSE MATEUSZ
--- NOTE | 2024-03-09 14:37 | PN.HOSP_ITS ---
Reason for Visit Reason for Visit: Diagnoses Hypothyroidism, unspecified (03/04/24) Cannabis use, unspecified, uncomplicated (03/04/24) Unspecified toxic encephalopathy (03/04/24) Objective Data Objective Data Vital Signs: Vital Signs Temp Pulse Resp BP Pulse Ox O2 Del Method 97.7 F L 82 18 152/89 H 97 Room Air 03/09/24 09:31 03/09/24 09:31 03/09/24 09:31 03/09/24 09:31 03/09/24 10:03 03/09/24 13:31 Oxygen Delivery Method Room Air Weight: 139 lb 5.314 oz Body Mass Index (BMI) 22.4 Intake & Output: Intake and Output for Last 24 Hours 03/07/24 03/08/24 03/09/24 23:59 23:59 23:59 Intake Total 1590 / 1830 2200 / 2350 400 / 400 Output Total 0 / 0 Balance 1590 / 1830 2200 / 2350 400 / 400 Lab / Micro Data 03/09/24 06:38 03/09/24 06:38 Labs: Laboratory Results - last 24 hr 03/09/24 06:38: WBC 6.3, RBC 4.51, Hgb 14.1, Hct 41.4, MCV 91.8, MCH 31.3, MCHC 34.1, RDW Std Deviation 42.6, RDW Coeff of Laurie 12.6, Plt Count 150, MPV 11.5, Immature Gran % (Auto) 0.300, Neut % (Auto) 60.9, Lymph % (Auto) 29.2, Burnett % (Auto) 9.4, Eos % (Auto) 0.0, Baso % (Auto) 0.2, Absolute Neuts (auto) 3.9, Absolute Lymphs (auto) 1.84, Nucleated RBC % 0, Sodium 139, Potassium 3.9, C hloride 110 H, Carbon Dioxide 23.0, Anion Gap 6, BUN 15, Creatinine 1.51 H, Estim Creat Clear Calc 39.87, Est GFR (MDRD) Af Amer 46 L, Est GFR (MDRD) Non-Af 38 L, BUN/Creatinine Ratio 9.9 L, Glucose 97, Calcium 9.1 Radiography Diagnostic Testing: Radiology Impression Echocardiogram 03/07/24 08:12 Interpretation Summary The left ventricular ejection fraction is 60 %. Normal size and thickness. Left ventricular systolic function is normal. Mild (1+) eccentric mitral valve insufficiency. Bubble contrast study negative for right to left interatrial shunt. Ordering Physician: Sherman Best Referring Physician: Shawn Aguero Performed By: Kesha Davis, RDCS, RVT Physical Exam Narrative Seen and examined. Patient is mildly sleepy/lethargic on Seroquel. Patient had MRI and echo done. Physical exam General: Mild lethargy due to Seroquel. Gets awake on verbal queries HEENT: Atraumatic, PERRLA, EOMI, Normocephalic Oral: Oral mucosa moist. No Gingival or Mucosal Lesions/ Ulcerations Neck: Supple, No JVD, Negative Carotid Bruits Chest wall/Lungs: Air entry diminished in bilateral lung bases. No crepitation/rhonchi Cardiovascular: Regular rate, Regular Rhythm, Normal S1, Normal S2, No M/G/R Abdomen: Bowel Sounds Present, Soft, Non Tender, Non-Distended : No dysuria. No renal angle tenderness. No suprapubic tenderness. Extremities: No edema, Capillary Refill Less than 3 Seconds Skin: No rashes, No breakdown Musculoskeletal: No Tenderness to Palpation of Joints or Extremities Neurological: No clear facial asymmetry.. Muscle strength 5/5 at major joints. DTR 2+/4. No acute focal neurological deficit. Psych/Mental Status: Lethargy. Assessment & Plan Assessment/Plan (1) Toxic encephalopathy: (2) Hypothyroidism: (3) Use of cannabinoid edibles: PLAN: Plan #Acute encephalopathy with history of suspected anxiety and depression on venlafaxine at home: * etiology is unclear, but is suspected to be due to cannabis toxicity or possible subacute stroke. * patient take cannabis gummies. It is thought she may have taken more than usual * TSH was also 18.8, but T4 is only 1 and free T2 is slightly low at 2.1. * Urinalysis showed no evidence of infection and urine tox was positive for cannabinoids. * serum alcohol level is <3. * CT of the brain showed no acute intracranial pathology. Repeat CT of the brain also showed no evidence of acute intracranial pathology. * PT/O on board. Fall precautions. * vitamin B12 level is normal at 369 and folate levels are pending. * syphilis antibody screen negative. 03/07: Neurologist note reviewed. As per her MRI read possible stroke, MRI appears slightly abnormal like subacute stroke. Patent 1 week ago. She ordered stroke workup including lipid panel A1c DVT prophylaxis, aspirin 81 mg daily, CTA head and neck and TTE. Cardiac telemetry. CT angiogram high risk because of increased creatinine therefore MRA head and neck ordered. Patient is being transferred to PCU. Routine EEG indicating a mild degree of encephalopathy. No epileptiform discharges or seizures were noted. 03/08: As per nursing staff note, she is agitated, restless and anxious to leave. She said that she is not getting her home medications. I tried to convince that MRI is abnormal and needs full stroke workup as per neurologist recommendation but she does not comprehend completely. I feel like patient would benefit from treatment in the hospital and has background history of anxiety and depression as she is on venlafaxine therefore the behavior of agitation she is imminent substantial risk to herself or others therefore pink slipped. Patient was started on haloperidol low-dose along with promethazine as needed for agitation. 03/09: Stroke workup completed. MRA head and neck does not show hemodynamically significant stenosis. Echo EF 60% with no interatrial shunt/PFO/ASD. Bubble contrast study negative. Patient is medically stable for discharge to inpatient psych facility. Discussed with the sample case porter. Discussed with the neurologist. Being discharged on baby aspirin and high intensity statin. Hypokalemia: Potassium is 3.3. Replace and monitor. 03/07 repeat potassium 3.7. 03/08 mild hypokalemia: Potassium 30 replacement #Fibromyalgia: stable. Gabapentin on hold. #Elevated TSH: TSH is 18. Free T4 is normal but free T3 slightly low at 1. Repeat TSH is 16.9. Started on synthroid 25mcg daily DVT prophylaxis: lovenox Clinical Impression(s) from Imaging Studies Brain CT 03/03/24 03:55 IMPRESSION: No CT evidence of acute intracranial hemorrhage or injury. 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 Chronic sinus disease with hyperdensity compatible with inspissated mucus or chronic allergic fungal disease. Electronically Signed: Tato Serra MD at 5:03 EDT , Brain CT 03/04/24 15:21 IMPRESSION: Mild atrophy and periventricular white matter ischemic changes. 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 No acute bleed If strong clinical suspicion for acute infarct MRI recommended Electronically Signed: Hiram Manzo MD at 16:54 EDT , Brain MRI 03/06/24 08:48 IMPRESSION: 1. Involutional changes of the brain, as described above. 2. No demonstrated acute infarct or intracranial hemorrhage. 3. No visualized hydrocephalus or midline shift. No signal abnormality to demonstrate anoxic or hypoxic ischemic encephalopathy. Electronically Signed: Leandro Coates MD at 13:03 EDT , Echocardiogram 03/07/24 08:12 Interpretation Summary The left ventricular ejection fraction is 60 %. Normal size and thickness. Left ventricular systolic function is normal. Mild (1+) eccentric mitral valve insufficiency. Bubble contrast study negative for right to left interatrial shunt. Ordering Physician: Sherman Best Referring Physician: Shawn Aguero Performed By: Kesha Davis, FERMIN, RVT Head MRA 03/07/24 08:12 IMPRESSION: No acute findings in the arteries of the head/brain. Electronically Signed: Sulaiman Drummond DO at 12:54 EDT , Neck MRA 03/07/24 08:12 IMPRESSION: Mild luminal irregularity of the proximal right internal carotid artery likely secondary to atherosclerosis or technique with less than 50% stenosis by NASCET criteria. Otherwise, no significant arterial pathology in the neck. Electronically Signed: Sulaiman Drummond DO at 12:52 EDT , Charges/Coding Visit Charges Inpatient E&M: 20287 Subs Hosp L2
--- NOTE | 2024-03-09 14:47 | CASEMGMT ---
Addendum entered by Shelby Sterling 03/09/24 15:52: Moriah said she spoke with the physician and patient does not need to be seen by Neurology. Moriah will work on psych placement for patient. Shelby CHILD Original Note: Moriah from crisis is at [facility] to meet with patient. Moriah is concerned as Neuro still needs to see patient. SW reviewed physicians note indicating patient is medically cleared and he indicated he spoke with Neuro. SW sent physician a message asking if patient still needs seen by Neuro? Shelby CHILD
[2024-03-09 15:30] VITALS: BP 147/75; PULSE 73; RESP 18; TEMP 36.9; O2SAT 98
[2024-03-09 16:10] LABS: Folate, RBC (Hct) Test 47.8 % (34.0-46.6); Folates, RBC Test 697 ng/mL (>498)
[2024-03-09 16:58] VITALS: BMI 22.4
--- NOTE | 2024-03-09 18:33 | NURSING ---
Reviewed and agreed on charting with Diana Connors RN
[2024-03-09] MEDS: Atorvastatin Calcium 80 MG Tablet PO (20:55)
[2024-03-09] MEDS: QUEtiapine 25 MG Tablet PO (20:55)
[2024-03-09 21:00] VITALS: BP 146/88; PULSE 74; RESP 18; TEMP 36.1; O2SAT 99
[2024-03-10 02:09] VITALS: BMI 22.4
[2024-03-10 03:00] VITALS: BP 149/61; PULSE 72; RESP 18; TEMP 35.9; O2SAT 98
[2024-03-10] MEDS: Levothyroxine 25 MCG TABLET PO (06:22)
--- NOTE | 2024-03-10 07:30 | DCINST_ITS ---
Discharge Instructions Diet Discharge Diet: No restrictions and 2000 mg Sodium Diet Activity Discharge Activity: - (Going to inpatient psych unit) Weight Bearing Status: Weight bearing as tolerated Dressing / Incision Call your doctor if you observe: Fever of 101 or Higher, Coldness, Increased Pain, Numbness or Tingling, Change in Color, Inability to urinate, Inability to have a bowel movement, Shortness of breath, Dizziness, Fainting spells, Swelling in the ankles, Chest pain, Prolonged hiccupping, Increased palpitations (irregular heartbeat) and Calf discomfort Follow Up Care When: IN 2 WEEKS Test Results: Test results from this visit will be discussed in further detail at your follow- up appointment, if applicable. Discharge Plan Admission Admit Date/Time: 03/04/24 13:35 Primary Reason for Your Visit: Confusion, acute change in mental status Attending Provider: Sherman Best Primary Care Provider: Shawn Aguero Consulting Providers: Aric Chase; Elmer Salinas; Sheila Sauer; Kaleb Jones; Vilma Arboleda; Romy Chapin; Denae Barragan; Marisel Frank; Oli Sifuentes; Pool Qureshi; JORGE GUEVARA; Marin Combs; Kindra Bolivar; Jeff Lopez; Jess Polo; Miranda Payne; Rodriguez Stanford; Malaika Asencio; Tripp Gonzalez; Dada Wilkinson; Tato Oswald; Kishor Gaines; Jose Ford; Haroldo Diez; Peyton Mejia; Mauricio Maier; Meredith Rausch; Juan Champagne Discharge Orders/Prescriptions Prescriptions: New acetaminophen 325 mg Tablet 650 mg PO Q6H PRN PRN (Reason: Pain 1-10 Or Fever>100.7) Qty: 0 0RF aspirin 81 mg Tablet,Chewable 81 mg PO BREAKFAST Qty: 0 0RF atorvastatin 40 mg tablet 40 mg PO QHS 30 Days Qty: 30 4RF Continued omeprazole 20 mg capsule,delayed release(DR/EC) 20 mg PO DAILY Patient Comments: TAKE ONE CAPSULE BY MOUTH ONCE DAILY 30 MINUTES BEFORE BREAKFAST bisoprolol-hydrochlorothiazide 10-6.25 mg tablet 1 tab PO DAILY Patient Comments: Take 1 tablet by mouth once daily. tizanidine 4 mg tablet 4 mg PO DAILY Patient Comments: TAKE 1 TABLET BY MOUTH EVERY 6 HOURS NEEDED FOR MUSCLE SPASMS venlafaxine 150 mg capsule,extended release 24hr 150 mg PO DAILY Patient Comments: Take 1 capsule by mouth once daily. bisoprolol fumarate 10 mg tablet 10 mg PO DAILY Changed cetirizine 10 mg tablet 10 mg PO DAILY PRN (Reason: ALLERGIES) 3 Days Qty: 0 0RF Patient Comments: TAKE 1 TABLET BY MOUTH ONCE DAILY NEEDED FOR HIVES Discontinued gabapentin 600 tablet 900 mg PO TIDCM doxycycline hyclate 100 mg capsule 100 mg PO BID Qty: 14 0RF ciprofloxacin HCl 500 mg tablet 500 mg PO Q12H Qty: 14 0RF Referrals / Follow Up: Twin Varghese MD [Non-Staff] - Within 1 Month Shawn Aguero PA [Primary Care Provider] - Disposition Disposition (needs filled in before D/C Order can be placed): Psychiatric Hospital or Unit
[2024-03-10 07:36] LABS: Absolute Lymphocyte Count 1.99 X10^3/uL (0.83-4.51); Basophil# 0.02 X10^3/uL; Basophil% 0.3 % (0-1); Hematocrit 46.3 % (37-47); Hemoglobin 15.7 g/dL (12.0-15.0); Lymphocyte # 1.99 X10^3/ul (0.83-4.51); Lymphocyte % 29.4 % (19-41); Mean Corp Hgb Conc 33.9 g/dL (32-36); Mean Corpuscular Hgb 31.6 pg (27.0-32.0); Mean Corpuscular Volume 93.2 fL (81-99); Mean Platelet Vol. 11.2 fl (6.2-12.0); Monocyte# 0.76 X10^3/uL; Monocyte% 11.2 % (0-10); NRBC Flagged by Analyzer 0 % (0-5); Neutrophil # 3.97 X10^3/uL (2.7-7.7); Neutrophil % 58.8 % (47-70); Platelet Count 177 K/mm3 (150-450); RBC Distribution Width CV 12.7 % (11.6-14.6); RBC Distribution Width SD 43.5 fl (35.1-43.9); Red Blood Count 4.97 M/mm3 (4.2-5.4); White Blood Count 6.8 K/mm3 (4.4-11.0)
[2024-03-10 07:39] VITALS: BP 142/90; PULSE 82; RESP 16; TEMP 36.9; O2SAT 99
--- NOTE | 2024-03-10 07:39 | DS.PCM_ITS ---
Providers Date of Admission: 03/04/24 Date of Discharge: 03/10/24 Primary Care Physician: TERRELL Grover Consultations 03/04/24 10:28 Consult: Tele-Neurology Routine Consulting Provider: [facility] Reason for Consult: altered mental status EMERGENT Consult: No Notified: Yes Date Notified: 03/04/24 Time Notified: 13:38 Method of Notification: [facility] Staff Notify [facility] of Tele-Neurology Consult: Yes 03/09/24 08:11 Tele [Consult: Tele-Neurology] Routine Consulting Provider: [facility] Reason for Consult: discharge recommendations EMERGENT Consult: No Notified: Yes Date Notified: 03/09/24 Time Notified: 08:20 Method of Notification: [facility] Staff Notify [facility] of Tele-Neurology Consult: Yes Reason For Visit: CANABANOID TOXICITY Diagnosis Discharge Diagnosis (1) Toxic encephalopathy: Status: Acute Code(s): G92.9 - Unspecified toxic encephalopathy (2) Hypothyroidism: Status: Acute Code(s): E03.9 - Hypothyroidism, unspecified (3) Use of cannabinoid edibles: Status: Acute Code(s): F12.90 - Cannabis use, unspecified, uncomplicated Plan #Acute encephalopathy with history of suspected anxiety and depression on venlafaxine at home: * etiology is unclear, but is suspected to be due to cannabis toxicity or possible subacute stroke. * patient take cannabis gummies. It is thought she may have taken more than usual * TSH was also 18.8, but T4 is only 1 and free T2 is slightly low at 2.1. * Urinalysis showed no evidence of infection and urine tox was positive for cannabinoids. * serum alcohol level is <3. * CT of the brain showed no acute intracranial pathology. Repeat CT of the brain also showed no evidence of acute intracranial pathology. * PT/O on board. Fall precautions. * vitamin B12 level is normal at 369 and folate levels are pending. * syphilis antibody screen negative. 03/07: Neurologist note reviewed. As per her MRI read possible stroke, MRI appears slightly abnormal like subacute stroke. Patent 1 week ago. She ordered stroke workup including lipid panel A1c DVT prophylaxis, aspirin 81 mg daily, CTA head and neck and TTE. Cardiac telemetry. CT angiogram high risk because of increased creatinine therefore MRA head and neck ordered. Patient is being transferred to PCU. Routine EEG indicating a mild degree of encephalopathy. No epileptiform discharges or seizures were noted. 03/08: As per nursing staff note, she is agitated, restless and anxious to leave. She said that she is not getting her home medications. I tried to convince that MRI is abnormal and needs full stroke workup as per neurologist recommendation but she does not comprehend completely. I feel like patient would benefit from treatment in the hospital and has background history of anxiety and depression as she is on venlafaxine therefore the behavior of agitation she is imminent substantial risk to herself or others therefore pink slipped. Patient was started on haloperidol low-dose along with promethazine as needed for agitation. 03/09: Stroke workup completed. MRA head and neck does not show hemodynamically significant stenosis. Echo EF 60% with no interatrial shunt/PFO/ASD. Bubble contrast study negative. Patient is medically stable for discharge to inpatient psych facility. Discussed with the skilled nursing case manager. Discussed with the neurologist. 03/10: Patient is medically stable for discharge. She is getting discharged to [facility] inpatient psych facility. Neurology signed off yesterday. Patient is discharged on baby aspirin and high intensity statin. Hypokalemia: Potassium is 3.3. Replace and monitor. 03/07 repeat potassium 3.7. 03/08 mild hypokalemia: Potassium 30 replacement #Fibromyalgia: stable. Gabapentin on hold. #Elevated TSH: TSH is 18. Free T4 is normal but free T3 slightly low at 1. Repeat TSH is 16.9. Started on synthroid 25mcg daily DVT prophylaxis: lovenox Clinical Impression(s) from Imaging Studies Brain CT 03/03/24 03:55 IMPRESSION: No CT evidence of acute intracranial hemorrhage or injury. 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 Chronic sinus disease with hyperdensity compatible with inspissated mucus or chronic allergic fungal disease. Electronically Signed: Tato Serra MD at 5:03 EDT , Brain CT 03/04/24 15:21 IMPRESSION: Mild atrophy and periventricular white matter ischemic changes. 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 No acute bleed If strong clinical suspicion for acute infarct MRI recommended Electronically Signed: Hiram Manzo MD at 16:54 EDT , Brain MRI 03/06/24 08:48 IMPRESSION: 1. Involutional changes of the brain, as described above. 2. No demonstrated acute infarct or intracranial hemorrhage. 3. No visualized hydrocephalus or midline shift. No signal abnormality to demonstrate anoxic or hypoxic ischemic encephalopathy. Electronically Signed: Leandro Coates MD at 13:03 EDT , Echocardiogram 03/07/24 08:12 Interpretation Summary The left ventricular ejection fraction is 60 %. Normal size and thickness. Left ventricular systolic function is normal. Mild (1+) eccentric mitral valve insufficiency. Bubble contrast study negative for right to left interatrial shunt. Ordering Physician: Sherman Best Referring Physician: Shawn Aguero Performed By: Kesha Davis, FERMIN, RVT Head MRA 03/07/24 08:12 IMPRESSION: No acute findings in the arteries of the head/brain. Electronically Signed: Sulaiman Drummond DO at 12:54 EDT , Neck MRA 03/07/24 08:12 IMPRESSION: Mild luminal irregularity of the proximal right internal carotid artery likely secondary to atherosclerosis or technique with less than 50% stenosis by NASCET criteria. Otherwise, no significant arterial pathology in the neck. Electronically Signed: Sulaiman Drummond DO at 12:52 EDT , Medications at Discharge Home Medications omeprazole 20 mg capsule,delayed release 20 mg PO DAILY 07/03/22 bisoprolol 10 mg-hydrochlorothiazide 6.25 mg tablet 1 tab PO DAILY HEART 07/09/22 tizanidine 4 mg tablet 4 mg PO DAILY MUSCLE RELAXANT 07/09/22 venlafaxine 150 mg capsule,extended release 24 hr 150 mg PO DAILY DEPRESSION 07/09/22 bisoprolol fumarate 10 mg tablet 10 mg PO DAILY 03/03/24 acetaminophen 325 mg tablet 650 mg (2 x 325 mg) PO Q6H PRN PRN Pain 1-10 Or Fever>100.7 #0 tabs 03/09/24 aspirin 81 mg chewable tablet 81 mg PO BREAKFAST #0 tabs 03/09/24 atorvastatin 40 mg tablet 40 mg PO QHS 1 month #30 tabs 03/09/24 cetirizine 10 mg tablet 10 mg PO DAILY PRN ALLERGIES 3 days #0 tabs 03/09/24 Physical Exam Narrative Seen and examined. Patient is awake alert and sitting on the bed. She is responding appropriately Physical exam General: Awake alert oriented x 3. Coherent speech. HEENT: Atraumatic, PERRLA, EOMI, Normocephalic Oral: Oral mucosa moist. No Gingival or Mucosal Lesions/ Ulcerations Neck: Supple, No JVD, Negative Carotid Bruits Chest wall/Lungs: Air entry diminished in bilateral lung bases. No crepitation/rhonchi Cardiovascular: Regular rate, Regular Rhythm, Normal S1, Normal S2, No M/G/R Abdomen: Bowel Sounds Present, Soft, Non Tender, Non-Distended : No dysuria. No renal angle tenderness. No suprapubic tenderness. Extremities: No edema, Capillary Refill Less than 3 Seconds Skin: No rashes, No breakdown Musculoskeletal: No Tenderness to Palpation of Joints or Extremities Neurological: No clear facial asymmetry.. Muscle strength 5/5 at major joints. DTR 2+/4. No acute focal neurological deficit. Psych/Mental Status: Mood appropriate. Weight / BMI Weight Weight: 139 lb 5.314 oz Body Mass Index (BMI) 22.4 ABG / Lab / Microbiology Data 03/10/24 07:10 03/09/24 06:38 Laboratory: Laboratory Results - last 24 hr 03/09/24 06:38: WBC 6.3, RBC 4.51, Hgb 14.1, Hct 41.4, MCV 91.8, MCH 31.3, MCHC 34.1, RDW Std Deviation 42.6, RDW Coeff of Laurie 12.6, Plt Count 150, MPV 11.5, Immature Gran % (Auto) 0.300, Neut % (Auto) 60.9, Lymph % (Auto) 29.2, Wood % (Auto) 9.4, Eos % (Auto) 0.0, Baso % (Auto) 0.2, Absolute Neuts (auto) 3.9, Absolute Lymphs (auto) 1.84, Nucleated RBC % 0, Sodium 139, Potassium 3.9, C hloride 110 H, Carbon Dioxide 23.0, Anion Gap 6, BUN 15, Creatinine 1.51 H, Estim Creat Clear Calc 39.87, Est GFR (MDRD) Af Amer 46 L, Est GFR (MDRD) Non-Af 38 L, BUN/Creatinine Ratio 9.9 L, Glucose 97, Calcium 9.1 Radiography Diagnostic Testing: Radiology Impression Echocardiogram 03/07/24 08:12 Interpretation Summary The left ventricular ejection fraction is 60 %. Normal size and thickness. Left ventricular systolic function is normal. Mild (1+) eccentric mitral valve insufficiency. Bubble contrast study negative for right to left interatrial shunt. Ordering Physician: Sherman Best Referring Physician: Shawn Aguero Performed By: Kesha Davis, FERMIN, RVT D/C Instructions Discharge Diet: No restrictions and 2000 mg Sodium Diet Weight Bearing Status: Weight bearing as tolerated Call your doctor if you observe: Fever of 101 or Higher, Coldness, Increased Pain, Numbness or Tingling, Change in Color, Inability to urinate, Inability to have a bowel movement, Shortness of breath, Dizziness, Fainting spells, Swelling in the ankles, Chest pain, Prolonged hiccupping, Increased palpitations (irregular heartbeat) and Calf discomfort When: IN 2 WEEKS Meaningful Use Info Meaningful Use Meaningful Use Diagnoses (Choose all that apply): None applicable Ischemic Stroke Statin Dosing Therapy Reference: STATIN DOSE THERAPY REFERENCE: * Patients > 75 years receive moderate or high dose statin therapy. * Patients 75 years or YOUNGER should receive HIGH intensity statin dose unless contraindicated. You will be required to document reason for non-treatment if statin daily dose does not meet guidelines. HIGH DOSE STATIN THERAPY DAILY Atorvastatin > than or = to 40 mg Rosuvastatin > than or = to 20 mg Amlodipine + Atorvastatin > than or = to 2.5/40 mg Ezetimibe + Simvastatin 10/80 mg Simvastatin 80mg Discharge Plan Admission Admit Date/Time: 03/04/24 13:35 Primary Reason for Your Visit: Confusion, acute change in mental status Attending Provider: Sherman Best Primary Care Provider: Shawn Aguero Consulting Providers: Aric Chase; Elmer Salinas; Sheila Sauer; Kaleb Jones; Vilma Arboleda; Romy Chapin; Denae Barragan; Marisel Frank; Oli Sifuentes; Pool Qureshi; JORGE GUEVARA; Marin Combs; Kindra Bolivar; Jeff Lopez; Jess Polo; Miranda Payne; Rodriguez Stanford; Malaika Asencio; Tripp Gonzalez; Dada Wilkinson; Tato Oswald; Kishor Gaines; Jose Ford; Haroldo Diez; Peyton Mejia; Mauricio Maier; Meredith Rausch; Mahi,Juan Instructions Additional Instructions / Restrictions: Patient is medically is stable for discharge to inpatient psych facility Discharge Orders/Prescriptions Prescriptions: New acetaminophen 325 mg Tablet 650 mg PO Q6H PRN PRN (Reason: Pain 1-10 Or Fever>100.7) Qty: 0 0RF aspirin 81 mg Tablet,Chewable 81 mg PO BREAKFAST Qty: 0 0RF atorvastatin 40 mg tablet 40 mg PO QHS 30 Days Qty: 30 4RF Continued omeprazole 20 mg capsule,delayed release(DR/EC) 20 mg PO DAILY Patient Comments: TAKE ONE CAPSULE BY MOUTH ONCE DAILY 30 MINUTES BEFORE BREAKFAST bisoprolol-hydrochlorothiazide 10-6.25 mg tablet 1 tab PO DAILY Patient Comments: Take 1 tablet by mouth once daily. tizanidine 4 mg tablet 4 mg PO DAILY Patient Comments: TAKE 1 TABLET BY MOUTH EVERY 6 HOURS NEEDED FOR MUSCLE SPASMS venlafaxine 150 mg capsule,extended release 24hr 150 mg PO DAILY Patient Comments: Take 1 capsule by mouth once daily. bisoprolol fumarate 10 mg tablet 10 mg PO DAILY Changed cetirizine 10 mg tablet 10 mg PO DAILY PRN (Reason: ALLERGIES) 3 Days Qty: 0 0RF Patient Comments: TAKE 1 TABLET BY MOUTH ONCE DAILY NEEDED FOR HIVES Discontinued gabapentin 600 tablet 900 mg PO TIDCM doxycycline hyclate 100 mg capsule 100 mg PO BID Qty: 14 0RF ciprofloxacin HCl 500 mg tablet 500 mg PO Q12H Qty: 14 0RF Referrals / Follow Up: Twin Varghese MD [Non-Staff] - Within 1 Month Sahwn Aguero PA [Primary Care Provider] - Disposition Disposition (needs filled in before D/C Order can be placed): Psychiatric Hospital or Unit
[2024-03-10 07:58] LABS: Anion Gap 4 (5-15); BUN 15 mg/dL (7-18); BUN/Creat Ratio 9.9 RATIO (10-20); Calcium,Total 9.4 mg/dL (8.5-10.1); Chloride 107 mmol/L (98-107); Creatinine, Serum 1.52 mg/dL (0.55-1.02); EST Glomerular Filtration Rate 38 mL/min (>60); Est Glom Filt Rate - Afr Amer 46 mL/min (>60); Estimated Creatinine Clearance 39.61 ml/min; Glucose 113 mg/dL (74-106); Potassium 4.3 mmol/L (3.5-5.1); Sodium Level 137 mmol/L (136-145)
--- NOTE | 2024-03-10 08:10 | NURSING ---
Informed that pt. was accepted @ [facility] inpatient psych. facility. Called and gave report to HANK Warren. Kelvin was unable to give me a unity or room number that pt. would be going to; she stated that they would call with this information once it was available. Pt. informed of transfer. Attempted to call significant other, Bassam, at number on chart but he did not answer and unable to leave voicemail. Called Daughter, Dash, and spoke with her to inform her of pt.'s transfer to [facility]. Daughter had several questions regarding pt.'s care/ transfer which were answered. Daughter Dash also requested that Pt.'s other daughter, Saray Walters,'s phone number be placed on the chart due to her living much closer to pt. and being in closer contact. Daughter Dash also requested that we call and give Saray an update as well and thanked this nurse for the call. Attempted to Call Saray Walters but she did not answer and unable to leave voicemail.
== END 2024-03-10 08:42 | DRG 812 ==
LOC: ED 05:25 → MS3 05:33 → PCU 03-08 03:09
PROVIDERS: Student in an Organized Health Care Education/Training Program; Emergency Provider Emergency Medicine; PCP Physician Assistant; Visit Provider Internal Medicine
DX: T40.711A Poisoning by cannabis, accidental (unintentional), initial encounter (principal); G92.8 Other toxic encephalopathy; E03.9 Hypothyroidism, unspecified; I10 Essential (primary) hypertension; M79.7 Fibromyalgia; F17.200 Nicotine dependence, unspecified, uncomplicated; E87.6 Hypokalemia; F41.8 Other specified anxiety disorders; Z79.899 Other long term (current) drug therapy; R94.6 Abnormal results of thyroid function studies
CPT/HCPCS: 36415; 70450; 70544; 70547; 70551; 80048; 80061; 80076; 80307; 80329; 81001; 82077; 82140; 82607; 82747; 82962; 83036; 84439; 84443; 84481; 85014; 85025; 86780; 92507; 93306; 94762; 95819; 97162; 97802; 99284; 99406; J7030; A4216; G0480